=== PATIENT | male | born 1950 | race Caucasian/White ===

== ENCOUNTER 2018-12-10 23:09 | Inpatient (IN) | payer BC, MEDICARE ==
[~2018-12-10] VITALS: Ht 182.9 cm; Wt 99.3 kg
[2018-12-10 23:15] VITALS: BP 165/92
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
--- NOTE | 2018-12-10 23:50 | NUR ---
[facility] is here
[2018-12-11] VITALS (16 sets, daily range): BP systolic 135–181; BP diastolic 69–96
[2018-12-11 00:03] LABS: BASOPHILS % (AUTO) 0.7 % (0.0-2.0); EOSINOPHILS % (AUTO) 1.1 % (0.0-3.0); HEMATOCRIT 37.9 % (42.0-52.0); HEMOGLOBIN 13.3 G/DL (14.2-18.0); LYMPHOCYTES % (AUTO) 17.7 % (20.0-45.0); MEAN CORPUSCULAR VOLUME 85 FL (80-99); MONOCYTES % (AUTO) 4.7 % (1.0-10.0); NEUTROPHILS % (AUTO) 75.8 % (45.0-75.0); PLATELET COUNT 164 K/UL (150-450); RED BLOOD COUNT 4.46 M/UL (4.70-6.10); RED CELL DISTRIBUTION WIDTH 11.1 % (11.6-14.8); WHITE BLOOD COUNT 6.9 K/UL (4.8-10.8)
[2018-12-11 00:09] LABS: ANION GAP 12 mmol/L (5-15); BLOOD UREA NITROGEN 25 mg/dL (7-18); CALCIUM 9.1 MG/DL (8.5-10.1); CARBON DIOXIDE 23 MMOL/L (21-32); CHLORIDE 101 MMOL/L (98-107); CREATININE 0.8 MG/DL (0.55-1.30); POTASSIUM 3.4 MMOL/L (3.5-5.1); SODIUM 136 MMOL/L (136-145)
[2018-12-11 00:23] LABS: ALANINE AMINOTRANSFERASE 29 U/L (12-78); ALBUMIN 4.3 G/DL (3.4-5.0); ALBUMIN/GLOBULIN RATIO 1.3 (1.0-2.7); ALKALINE PHOSPHATASE 52 U/L (46-116); ASPARTATE AMINO TRANSFERASE 24 U/L (15-37); BILIRUBIN,TOTAL 0.4 MG/DL (0.2-1.0); CKMB 3.9 NG/ML (0.0-3.6); CREATINE KINASE 186 U/L (26-308)
--- NOTE | 2018-12-11 00:30 | Diagnostic Imaging Report ---
EXAM: CT Head Without Intravenous Contrast CLINICAL HISTORY: SYNCOPE TECHNIQUE: Axial computed tomography images of the head/brain without intravenous contrast. CTDI is 70.38 mGy and DLP is 1527 mGy-cm. One or more of the following dose reduction techniques were used: automated exposure control, adjustment of the mA and/or kV according to patient size, use of iterative reconstruction technique. COMPARISON: No relevant prior studies available. FINDINGS: Atrophy. Chronic-appearing ischemic changes and encephalomalacia in the frontal and temporal lobes. No intracranial hemorrhage, mass effect or other acute intracranial findings. Imaged paranasal sinuses well-aerated with minimal chronic-appearing sinus opacity. IMPRESSION: No acute intracranial findings
--- NOTE | 2018-12-11 00:51 | Diagnostic Imaging Report ---
EXAM: XR Chest, 1 View CLINICAL HISTORY: SYNCOPE TECHNIQUE: Frontal view of the chest. COMPARISON: No relevant prior studies available. FINDINGS/IMPRESSION: Rotated portable chest. Suspect cardiac silhouette upper limits normal size allowing for techniques. No overt edema, consolidation or other acute cardiopulmonary findings. Questionable increased right tracheal shift than normally expected. If there is concern for underlying mediastinal mass, CT could clarify.
--- NOTE | 2018-12-11 01:15 | NUR ---
ED Nurse Note: Pt had another syncopal episode while laying in bed, regained consciousness after 30 secs. Pt stated feeling dizzy before hand. ER MD aware, pt VSS. Pt resting now. No further orders at this time.
[2018-12-11 01:24] LABS: APPEARANCE,URINE CLEAR; BILIRUBIN, URINE NEGATIVE (NEGATIVE); COLOR,URINE PALE YELLOW; GLUCOSE, URINE (UA) 1+ (NEGATIVE); KETONES,URINE NEGATIVE (NEGATIVE); LEUKOCYTE ESTERASE ,URINE NEGATIVE (NEGATIVE); NITRITE,URINE NEGATIVE (NEGATIVE); PH,URINE 7 (4.5-8.0); PROTEIN,URINE NEGATIVE (NEGATIVE); UROBILINOGEN,URINE NORMAL MG/DL (0.0-1.0)
--- NOTE | 2018-12-11 03:41 | NUR ---
ED Nurse Note: Pt voided >900mls yellow urine, laying in bed now with eyes closed, snoring. Will continue to monitor. Awaiting Tele bed
--- NOTE | 2018-12-11 05:13 | NUR ---
ED Nurse Note: Called Dr Meza for admitting orders, no answer. Will attempt later.
--- NOTE | 2018-12-11 07:09 | NUR ---
HAND-OFF: Report given to TOLU Coleman.
[2018-12-11] MEDS ORDERED: INDERAL LA60 MG ORAL (07:10)
[2018-12-11] MEDS ORDERED: AMLODIPINE BESYL5 MG ORAL (07:10)
--- NOTE | 2018-12-11 07:10 | NUR ---
ED Nurse Note: recieved pt on bed, pt hooked on monitor with vs stable. pt came in due to syncopy, pt able to talk, alert oriented x 4. pt denies any pain. pt is having breakfast at the moment. will continue to monitor.
--- NOTE | 2018-12-11 08:09 | NUR ---
ED Nurse Note: pt is admitted to the hospital, report given to Nayla MOTLEY, rn told me that the bed is not ready yet, will call to chech after 10 mins.
--- NOTE | 2018-12-11 08:20 | NUR ---
ED Nurse Note: pt was transfered to tele 220-2 with stable vs and all belongings was endorsed to nurys Winslow
--- NOTE | 2018-12-11 08:30 | NUR ---
NURSE NOTES: Received report from TOLU Rios. Patient transferred from ED to tele, nurse monitoring on, Patient on room air, no active s/s cardiac respiratory distress noticed at this time. Patient AOx4, belonging list checked with RN. Patient denies pain at this time, IV on left hand 18G, asymptomatic, patent, intact. Bed in lowest position, side rails upx3, call light within reach. Will continue to monitor.
--- NOTE | 2018-12-11 12:00 | NUR ---
NURSE NOTES: Patient transferred to ICU-C per Dr. Meza.
[2018-12-11] MEDS ORDERED: HydrALAZINE 25mg tab ORAL PRN ×2 (12:15→13:07)
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
[2018-12-11] MEDS ORDERED: Aspirin Baby 81mg ORAL SCH (12:24)
--- NOTE | 2018-12-11 12:39 | NUR ---
CHARGE NURSE NOTES: at 1148 the quality assurance monitor chassis said the pt in 220 appears to be in asystole. Pt found unconscious/unresponsive/not breathing in left lateral position. Code was called and the patient moved to supine position. During a sternal rub the patient gasped and started to move. Code changed to EMERGENCY SERVICES PROFESSIONAL. Pt awake/disoriented O x name only. Dr Meza at bedside. EKG indicates a sinus pause lasting approx [address] Griffin contacted, orders received and read back. Pt transported to ICU - C.
--- NOTE | 2018-12-11 12:45 | NUR ---
NURSE NOTES: PATIENT BROUGHT TO ICU FROM TELE DUE TO ASYSTOLE. PATIENT IS AWAKE, ALERT AND ORIENTED. HOOKED TO CONTAINER WASHER MACHINE. ON ROOM AIR. NO SIGNS OF DISTRESS OF THE MOMENT. NO COUGHLIN. SKIN IS INTACT. IV ON LEFT HAND G18, SL. NO SIGNS OF DISTRESS. WILL CONTINUE TO MONITOR.
[2018-12-11 12:48] LABS: BASOPHILS % (AUTO) 0.7 % (0.0-2.0); EOSINOPHILS % (AUTO) 1.1 % (0.0-3.0); HEMATOCRIT 42.1 % (42.0-52.0); HEMOGLOBIN 14.4 G/DL (14.2-18.0); LYMPHOCYTES % (AUTO) 16.8 % (20.0-45.0); MEAN CORPUSCULAR VOLUME 86 FL (80-99); MONOCYTES % (AUTO) 7.2 % (1.0-10.0); NEUTROPHILS % (AUTO) 74.2 % (45.0-75.0); PLATELET COUNT 194 K/UL (150-450); RED BLOOD COUNT 4.92 M/UL (4.70-6.10); RED CELL DISTRIBUTION WIDTH 11.4 % (11.6-14.8); WHITE BLOOD COUNT 8.7 K/UL (4.8-10.8)
--- NOTE | 2018-12-11 13:00 | NUR ---
NURSE NOTES: PATIENT HOOKED TO NASAL CANNULA. WILL CONTINUE TO MONITOR.
[2018-12-11 13:14] LABS: ALANINE AMINOTRANSFERASE 31 U/L (12-78); ALBUMIN/GLOBULIN RATIO 1.1 (1.0-2.7); ALKALINE PHOSPHATASE 49 U/L (46-116); ANION GAP 12 mmol/L (5-15); ASPARTATE AMINO TRANSFERASE 20 U/L (15-37); BILIRUBIN,TOTAL 0.5 MG/DL (0.2-1.0); BLOOD UREA NITROGEN 16 mg/dL (7-18); CALCIUM 9.5 MG/DL (8.5-10.1); CARBON DIOXIDE 25 MMOL/L (21-32); CHLORIDE 105 MMOL/L (98-107); CHOLESTEROL 167 MG/DL (< 200); CREATINE KINASE 171 U/L (26-308); CREATININE 0.8 MG/DL (0.55-1.30); FERRITIN 104 NG/ML (8-388); GAMMA GLUTAMYL TRANSPEPTIDASE 23 U/L (5-85); HDL CHOLESTEROL 50 MG/DL (40-60); PHOSPHORUS 3.1 MG/DL (2.5-4.9); POTASSIUM 3.5 MMOL/L (3.5-5.1); SODIUM 142 MMOL/L (136-145); TRIGLYCERIDES 65 MG/DL (30-150)
[2018-12-11 13:36] LABS: % IRON SATURATION 30 % (15-50); IRON 95 ug/dL (50-175); TOTAL IRON BINDING CAPACITY 317 ug/dL (250-450)
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
--- NOTE | 2018-12-11 15:42 | Cardiac Electrophysiology PN ---
Subjective Subjective [id number] Objective Last 24 Hour Vital Signs Date Time Temp Pulse Resp B/P (MAP) Pulse Ox O2 Delivery O2 Flow Rate FiO2 12/11/18 13:15 181/96 12/11/18 09:58 76 174/99 12/11/18 09:00 Room Air 12/11/18 08:20 98.6 83 20 145/81 98 Room Air 12/11/18 07:12 83 20 145/81 98 Room Air 12/11/18 05:45 98.6 78 14 168/72 95 Room Air 12/11/18 05:22 Room Air 12/11/18 03:43 97.9 78 16 135/78 96 Room Air 12/11/18 01:30 97.8 58 20 148/80 95 Room Air 12/10/18 23:15 98.4 73 16 165/92 18 Room Air 12/10/18 23:06 98.1 73 16 170/92 (118) 96 Room Air Intake and Output 12/10/18 12/11/18 19:00 07:00 Output Total 1500 ml Balance -1500 ml Output Urine Total 1500 ml # Voids 3 Laboratory Tests Test 12/10/18 23:30 12/11/18 12:35 White Blood Count 6.9 K/UL (4.8-10.8) 8.7 K/UL (4.8-10.8) Red Blood Count 4.46 M/UL (4.70-6.10) L 4.92 M/UL (4.70-6.10) Hemoglobin 13.3 G/DL (14.2-18.0) L 14.4 G/DL (14.2-18.0) Hematocrit 37.9 % (42.0-52.0) L 42.1 % (42.0-52.0) Mean Corpuscular Volume 85 FL (80-99) 86 FL (80-99) Mean Corpuscular Hemoglobin 29.8 PG (27.0-31.0) 29.3 PG (27.0-31.0) Mean Corpuscular Hemoglobin Concent 35.1 G/DL (32.0-36.0) 34.2 G/DL (32.0-36.0) Red Cell Distribution Width 11.1 % (11.6-14.8) L 11.4 % (11.6-14.8) L Platelet Count 164 K/UL (150-450) 194 K/UL (150-450) Mean Platelet Volume 7.8 FL (6.5-10.1) 7.7 FL (6.5-10.1) Neutrophils (%) (Auto) 75.8 % (45.0-75.0) H 74.2 % (45.0-75.0) Lymphocytes (%) (Auto) 17.7 % (20.0-45.0) L 16.8 % (20.0-45.0) L Monocytes (%) (Auto) 4.7 % (1.0-10.0) 7.2 % (1.0-10.0) Eosinophils (%) (Auto) 1.1 % (0.0-3.0) 1.1 % (0.0-3.0) Basophils (%) (Auto) 0.7 % (0.0-2.0) 0.7 % (0.0-2.0) Sodium Level 136 MMOL/L (136-145) 142 MMOL/L (136-145) Potassium Level 3.4 MMOL/L (3.5-5.1) L 3.5 MMOL/L (3.5-5.1) Chloride Level 101 MMOL/L (98-107) 105 MMOL/L (98-107) Carbon Dioxide Level 23 MMOL/L (21-32) 25 MMOL/L (21-32) Anion Gap 12 mmol/L (5-15) 12 mmol/L (5-15) Blood Urea Nitrogen 25 mg/dL (7-18) H 16 mg/dL (7-18) Creatinine 0.8 MG/DL (0.55-1.30) 0.8 MG/DL (0.55-1.30) Estimat Glomerular Filtration Rate > 60 mL/min (>60) > 60 mL/min (>60) Glucose Level 235 MG/DL (74-106) H 159 MG/DL (74-106) H Calcium Level 9.1 MG/DL (8.5-10.1) 9.5 MG/DL (8.5-10.1) Total Bilirubin 0.4 MG/DL (0.2-1.0) 0.5 MG/DL (0.2-1.0) Aspartate Amino Transf (AST/SGOT) 24 U/L (15-37) 20 U/L (15-37) Alanine Aminotransferase (ALT/SGPT) 29 U/L (12-78) 31 U/L (12-78) Alkaline Phosphatase 52 U/L (46-116) 49 U/L (46-116) Total Creatine Kinase 186 U/L (26-308) 171 U/L (26-308) Creatine Kinase MB 3.9 NG/ML (0.0-3.6) H Creatine Kinase MB Relative Index 2.0 Troponin I 0.002 ng/mL (0.000-0.056) 0.008 ng/mL (0.000-0.056) Total Protein 7.5 G/DL (6.4-8.2) 7.5 G/DL (6.4-8.2) Albumin 4.3 G/DL (3.4-5.0) 4.0 G/DL (3.4-5.0) Globulin 3.2 g/dL 3.5 g/dL Albumin/Globulin Ratio 1.3 (1.0-2.7) 1.1 (1.0-2.7) Serum Alcohol < 3 mg/dL Hemoglobin A1c 5.7 % (4.3-6.0) Uric Acid 5.0 MG/DL (2.6-7.2) Phosphorus Level 3.1 MG/DL (2.5-4.9) Magnesium Level 2.1 MG/DL (1.8-2.4) Iron Level 95 ug/dL (50-175) Total Iron Binding Capacity 317 ug/dL (250-450) Percent Iron Saturation 30 % (15-50) Unsaturated Iron Binding 222 ug/dL (112-346) Ferritin 104 NG/ML (8-388) Gamma Glutamyl Transpeptidase 23 U/L (5-85) C-Reactive Protein, Quantitative < 0.4 mg/dL (0.00-0.90) Pro-B-Type Natriuretic Peptide 139 pg/mL (0-125) H Triglycerides Level 65 MG/DL (30-150) Cholesterol Level 167 MG/DL (< 200) LDL Cholesterol 105 mg/dL (<100) H HDL Cholesterol 50 MG/DL (40-60) Cholesterol/HDL Ratio 3.3 (3.3-4.4) Vitamin B12 Level 930 PG/ML (193-986) Folate 19.6 NG/ML (8.6-58.9) Thyroid Stimulating Hormone (TSH) 1.368 uiU/mL (0.358-3.740) Free Thyroxine 1.16 NG/DL (0.76-1.46) Samuel Griffin MD Dec 11, 2018 15:42
--- NOTE | 2018-12-11 15:42 | NUR ---
NURSE NOTES: SEEN AND EXAMINED BY DR FARRELL. WITH NEW ORDERS MADE. NO SIGN SOF DISTRESS. WILL CONTINUE TO MONITOR.
--- NOTE | 2018-12-11 19:10 | NUR ---
HAND-OFF: Report given to Charmaine Figueroa RN. Dr Elliott made aware that pt uses BIPAP at night. new orders made.
--- NOTE | 2018-12-11 19:54 | NUR ---
NURSE NOTES: pt awake and alert no c/o pain or sob hr 68-71 sr with 1st AVB
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
--- NOTE | 2018-12-11 20:31 | NUR ---
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
--- NOTE | 2018-12-11 22:00 | NUR ---
NURSE NOTES: pt awake and alert no c/o chest pain or sob
[2018-12-12] VITALS (35 sets, daily range): BP systolic 125–173; BP diastolic 62–100
--- NOTE | 2018-12-12 | NUR ---
NURSE NOTES: pt on b-pap 15/5 o2sat 100 o/o npo after sr 84
--- NOTE | 2018-12-12 00:54 | NUR ---
CODE BLUE: See Code sheet which remains on paper.
--- NOTE | 2018-12-12 01:25 | NUR ---
NURSE NOTES: Nurse Lorenza Called doctor Gaby at this time. Message left. awaiting for MD to call back.
--- NOTE | 2018-12-12 01:25 | NUR ---
NURSE NOTES: Called and spoke with Fabi Johnson about the patient coding. States she wants the sizing sprayer to be called and asked if the procedure can be done sooner or if a transfer could be arranged. If none of this can be done then she will come and take him somewhere they can place a pacemaker.
--- NOTE | 2018-12-12 01:36 | NUR ---
NURSE NOTES: Called spoke with nursing aircraft cleaning supervisor Aníbal about conversation with . Nurse Lorenza attempting to get a hold of doctor Gaby at this time.
--- NOTE | 2018-12-12 01:56 | NUR ---
NURSE NOTES: Called and left message for MD Griffin at this time. awaiting call back
--- NOTE | 2018-12-12 02:10 | NUR ---
NURSE NOTES: Nursing Technical Sales Consultant Aníbal in ICU, Called and left message for MD Griffin at this time. awaiting call back.
--- NOTE | 2018-12-12 02:15 | NUR ---
NURSE NOTES: Spoke to MD Griffin at this time. Order was given to let egg processing supervisor know to set up pacemaker Implantation for 0700 this morning. Computer Consultant, and patient Notified about the change in time.
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
--- NOTE | 2018-12-12 03:30 | NUR ---
NURSE NOTES: MD Griffin Called me at this time to notify the airfreight loading supervisor about coming to place pace maker at this time. Procedure can not wait until 0700.
--- NOTE | 2018-12-12 03:31 | NUR ---
NURSE NOTES: Nurse fence erector supervisor Aníbal at the Station now making calls and organizing the surgical team to come in
--- NOTE | 2018-12-12 03:41 | NUR ---
NURSE NOTES: MD Griffin Called and notified he has the rep from [employer] on his way and he will be here in 15 minutes
--- NOTE | 2018-12-12 04:10 | NUR ---
NURSE NOTES: MD Griffin at the bedside with the patient and family. awaiting surgical team.
[2018-12-12 04:14] LABS: BASOPHILS % (AUTO) 0.8 % (0.0-2.0); EOSINOPHILS % (AUTO) 1.6 % (0.0-3.0); HEMATOCRIT 41.8 % (42.0-52.0); HEMOGLOBIN 14.3 G/DL (14.2-18.0); LYMPHOCYTES % (AUTO) 17.8 % (20.0-45.0); MEAN CORPUSCULAR VOLUME 87 FL (80-99); MONOCYTES % (AUTO) 7.5 % (1.0-10.0); NEUTROPHILS % (AUTO) 72.3 % (45.0-75.0); PLATELET COUNT 206 K/UL (150-450); RED BLOOD COUNT 4.82 M/UL (4.70-6.10); RED CELL DISTRIBUTION WIDTH 11.4 % (11.6-14.8); WHITE BLOOD COUNT 9.3 K/UL (4.8-10.8)
--- NOTE | 2018-12-12 04:22 | Cardiac Electrophysiology PN ---
Assessment/Plan Assessment/Plan 1. 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 Heart rate down to 20s as well as more than 60 second asystole due to complete heart block. Even though the patient had a small dose of Inderal 2 days ago, that would not explain the complete heart block and more than 60 second pauses. This is a class 1 indication for permanent pacemaker implantation. Transcutaneous pacing patches were not capturing at max out put. Will proceed with emergency dual chamber pacer implant. Discussed with the patient and his the risks, benefits, and alternatives of permanent pacemaker implantation. They agreed and would like to proceed. 2. Accelerated hypertension. The patient is on hydralazine p.r.n. as well as standing dose of hydralazine 25 mg b.i.d. 3. The patient also was ruled out for myocardial infarction and thyroid function test within normal range. Echocardiogram showed ejection fraction of 50%. [facility] ICU team, nursing anode crew supervisor, [facility] Rep, Dr Meza and family at bedside Subjective Subjective Coded again at 00.54 with asystole with CHB and transcutaneous pacing patches wasn't capturing ventricle despite max out put, had CPR. Sinus angela came back at 00.55. Dr Molina from ER attended and he recieved atropine 0.5 mg for angela cardia. and son at bedside. I was called and Emergency OR team was activated. Patient now fully awake and alert with some Right Rib pain from CPR Objective Last 24 Hour Vital Signs Date Time Temp Pulse Resp B/P (MAP) Pulse Ox O2 Delivery O2 Flow Rate FiO2 12/12/18 04:00 98.4 62 14 128/78 (95) 98 12/12/18 04:00 98.4 12/12/18 03:00 62 14 128/78 (95) 98 12/12/18 02:00 69 14 140/81 (100) 98 12/12/18 01:00 72 12 142/80 (100) 98 12/12/18 00:35 17 98 Facial 35 12/12/18 00:35 67 17 98 Bi-Pap 35 12/12/18 00:00 98.4 72 19 142/77 (98) 99 12/11/18 23:00 72 19 142/77 (98) 99 12/11/18 22:00 76 18 156/80 (105) 98 12/11/18 21:00 81 16 146/69 (94) 98 12/11/18 20:00 98.6 69 12 172/91 (118) 100 12/11/18 20:00 83 12/11/18 20:00 Room Air 12/11/18 19:00 61 17 159/80 (106) 99 12/11/18 18:00 63 16 159/79 (105) 99 12/11/18 17:00 98.6 20 158/80 (106) 99 12/11/18 16:21 98.6 20 181/96 (124) 98 12/11/18 16:00 74 19 174/87 (116) 98 12/11/18 16:00 83 12/11/18 15:00 80 19 174/87 (116) 99 12/11/18 14:00 16 174/87 (116) 99 12/11/18 13:15 181/96 12/11/18 13:00 98.3 16 166/89 (114) 97 12/11/18 12:45 71 12/11/18 09:58 76 174/99 12/11/18 09:00 Room Air 12/11/18 08:20 98.6 83 20 145/81 98 Room Air 12/11/18 07:12 83 20 145/81 98 Room Air 12/11/18 05:45 98.6 78 14 168/72 95 Room Air 12/11/18 05:22 Room Air Intake and Output 12/11/18 12/12/18 18:59 06:59 Intake Total 450 ml 240 ml Output Total 2150 ml 300 ml Balance -1700 ml -60 ml Intake Oral 450 ml 240 ml Output Urine Total 2150 ml 300 ml # Voids 1 Laboratory Tests Test 12/11/18 12:35 12/12/18 03:45 White Blood Count 8.7 K/UL (4.8-10.8) Pending Red Blood Count 4.92 M/UL (4.70-6.10) Pending Hemoglobin 14.4 G/DL (14.2-18.0) Pending Hematocrit 42.1 % (42.0-52.0) Pending Mean Corpuscular Volume 86 FL (80-99) Pending Mean Corpuscular Hemoglobin 29.3 PG (27.0-31.0) Pending Mean Corpuscular Hemoglobin Concent 34.2 G/DL (32.0-36.0) Pending Red Cell Distribution Width 11.4 % (11.6-14.8) L Pending Platelet Count 194 K/UL (150-450) Pending Mean Platelet Volume 7.7 FL (6.5-10.1) Pending Neutrophils (%) (Auto) 74.2 % (45.0-75.0) Pending Lymphocytes (%) (Auto) 16.8 % (20.0-45.0) L Pending Monocytes (%) (Auto) 7.2 % (1.0-10.0) Pending Eosinophils (%) (Auto) 1.1 % (0.0-3.0) Pending Basophils (%) (Auto) 0.7 % (0.0-2.0) Pending Sodium Level 142 MMOL/L (136-145) Pending Potassium Level 3.5 MMOL/L (3.5-5.1) Pending Chloride Level 105 MMOL/L (98-107) Pending Carbon Dioxide Level 25 MMOL/L (21-32) Pending Anion Gap 12 mmol/L (5-15) Blood Urea Nitrogen 16 mg/dL (7-18) Pending Creatinine 0.8 MG/DL (0.55-1.30) Pending Estimat Glomerular Filtration Rate > 60 mL/min (>60) Pending Glucose Level 159 MG/DL (74-106) H Pending Hemoglobin A1c 5.7 % (4.3-6.0) Uric Acid 5.0 MG/DL (2.6-7.2) Calcium Level 9.5 MG/DL (8.5-10.1) Pending Phosphorus Level 3.1 MG/DL (2.5-4.9) Magnesium Level 2.1 MG/DL (1.8-2.4) Iron Level 95 ug/dL (50-175) Total Iron Binding Capacity 317 ug/dL (250-450) Percent Iron Saturation 30 % (15-50) Unsaturated Iron Binding 222 ug/dL (112-346) Ferritin 104 NG/ML (8-388) Total Bilirubin 0.5 MG/DL (0.2-1.0) Pending Gamma Glutamyl Transpeptidase 23 U/L (5-85) Aspartate Amino Transf (AST/SGOT) 20 U/L (15-37) Pending Alanine Aminotransferase (ALT/SGPT) 31 U/L (12-78) Pending Alkaline Phosphatase 49 U/L (46-116) Pending Total Creatine Kinase 171 U/L (26-308) Troponin I 0.008 ng/mL (0.000-0.056) C-Reactive Protein, Quantitative < 0.4 mg/dL (0.00-0.90) Pro-B-Type Natriuretic Peptide 139 pg/mL (0-125) H Total Protein 7.5 G/DL (6.4-8.2) Pending Albumin 4.0 G/DL (3.4-5.0) Pending Globulin 3.5 g/dL Pending Albumin/Globulin Ratio 1.1 (1.0-2.7) Triglycerides Level 65 MG/DL (30-150) Cholesterol Level 167 MG/DL (< 200) LDL Cholesterol 105 mg/dL (<100) H HDL Cholesterol 50 MG/DL (40-60) Cholesterol/HDL Ratio 3.3 (3.3-4.4) Vitamin B12 Level 930 PG/ML (193-986) Folate 19.6 NG/ML (8.6-58.9) Thyroid Stimulating Hormone (TSH) 1.368 uiU/mL (0.358-3.740) Free Thyroxine 1.16 NG/DL (0.76-1.46) Prothrombin Time Pending Prothromb Time International Ratio Pending Activated Partial Thromboplast Time Pending Objective HEAD AND NECK: Showed no JVD or carotid bruits. LUNGS: Clear. CARDIOVASCULAR: Angela S1 and S2 with no gallop or murmur. ABDOMEN: Soft and nontender. EXTREMITIES: No pitting edema. Samuel Griffin MD Dec 12, 2018 04:22
[2018-12-12 04:23] LABS: ANION GAP 8 mmol/L (5-15); BLOOD UREA NITROGEN 17 mg/dL (7-18); CALCIUM 9.1 MG/DL (8.5-10.1); CARBON DIOXIDE 26 MMOL/L (21-32); CHLORIDE 106 MMOL/L (98-107); CREATININE 0.9 MG/DL (0.55-1.30); SODIUM 140 MMOL/L (136-145)
--- NOTE | 2018-12-12 04:23 | Pre-Procedure Note/Attestation ---
Pre-Procedure Note/Attestation Complete Prior to Procedure Planned Procedure: left Procedure Narrative: Dual chamber pacer implant Attestation I attest that I discussed the nature of the procedure; its benefits; risks and complications; and alternatives (and the risks and benefits of such alternatives ), prior to the procedure, with the patient (or the patient's legal customer relations representative). I attest that, if there was a reasonable possibility of needing a blood transfusion, the patient (or the patient's legal customer relations representative) was given the [facility] standardized written summary, pursuant to the [employer] Manpreet Blood Safety Act ([place] Health and Safety Code # 1645, as amended). I attest that I re-evaluated the patient just prior to the surgery and that there has been no change in the patient's H&P, except as documented below: Samuel Griffin MD Dec 12, 2018 04:23
[2018-12-12 04:29] LABS: ALANINE AMINOTRANSFERASE 24 U/L (12-78); ALBUMIN/GLOBULIN RATIO 1.3 (1.0-2.7); ALKALINE PHOSPHATASE 54 U/L (46-116); ASPARTATE AMINO TRANSFERASE 18 U/L (15-37); BILIRUBIN,TOTAL 0.3 MG/DL (0.2-1.0)
--- NOTE | 2018-12-12 04:30 | NUR ---
NURSE NOTES: Patient taken down to surgery at this time. Report given to or nurse
[2018-12-12] MEDS ORDERED: Lidocaine 1% Plain 30 ml INJ ONE (04:35)
[2018-12-12] MEDS ORDERED: Isovue-M 300 15ml INJ ONE (04:35)
[2018-12-12] MEDS ORDERED: Midazolam 2mg/2ml Inj ONE (04:44)
[2018-12-12] MEDS ORDERED: fentaNYL 100 mcg/2 mL IV ONE (04:44)
[2018-12-12] MEDS ORDERED: Vancomycin 1gm vial IVPB ONE (04:51)
[2018-12-12] MEDS ORDERED: Sodium Chloride 10ml vial INJ ONE (05:00)
[2018-12-12] MEDS ORDERED: Propofol 200mg/20ml IV ONE (05:00)
[2018-12-12] MEDS ORDERED: Sterile Water Irrig 1000ml IRRIG ONE (05:00)
[2018-12-12] MEDS ORDERED: Atropine Sulfate 0.4mg/ml inj ONE (05:00)
[2018-12-12] MEDS ORDERED: Morphine Sulfate 2mg/ml Inj(IV/IM USE ONLY) IVP PRN ×2 (05:30→07:30)
[2018-12-12] MEDS ORDERED: Tylenol #3 tab (300mg/30mg) ORAL PRN ×2 (05:30→09:30)
--- NOTE | 2018-12-12 05:46 | Anethesia Preoperative Eval ---
Anesthesia Pre-op PMH/ROS General Date of Evaluation: Dec 12, 2018 Time of Evaluation: 04:40 Anesthesiologist: Serge ASA Score: ASA 3 Mallampati Score Class I : Soft palate, uvula, fauces, pillars visible Class II: Soft palate, uvula, fauces visible Class III: Soft palate, base of uvula visible Class IV: Only hard plate visible Mallampati Classification: Class II Surgeon: Pako Diagnosis: Complete Heart block Surgical Procedure: Pacemaker placement Anesthesia History: none Family History: no anesthesia problems Allergies: Coded Allergies: PENICILLINS (Verified Allergy, Unknown, 12/10/18) Patient NPO?: Yes NPO Date: Dec 12, 2018 NPO Time: 2100 Past Medical History Cardiovascular: Reports: HTN; Denies: CAD, GA, valve dz, arrhythmia, other Pulmonary: Reports: NISREEN Gastrointestinal/Genitourinary: Reports: GERD; Denies: CRI, ESRD, other Neurologic/Psychiatric: Denies: dementia, CVA, depression/anxiety, TIA, other Endocrine: 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 Exam Physician Exam Last Vital Signs Date Time Temp Pulse Resp B/P (MAP) Pulse Ox O2 Delivery O2 Flow Rate FiO2 12/12/18 04:00 83 12/12/18 04:00 98.4 14 128/78 (95) 98 12/12/18 00:35 Facial 35 Constitutional: NAD Neurologic: CN 2-12 intact Cardiovascular: RRR, other - angela Respiratory: CTA Gastrointestinal: S/NT/ND Airway Exam Mallampati Score: Class II MO: limited Neck: stiff ROM: limited Teeth: missing Dentures: no upper, no lower Anesthesia Pre-op A/P Labs Hematology Test 12/11/18 12:35 12/12/18 03:45 White Blood Count 8.7 K/UL (4.8-10.8) 9.3 K/UL (4.8-10.8) Red Blood Count 4.92 M/UL (4.70-6.10) 4.82 M/UL (4.70-6.10) Hemoglobin 14.4 G/DL (14.2-18.0) 14.3 G/DL (14.2-18.0) Hematocrit 42.1 % (42.0-52.0) 41.8 % (42.0-52.0) L Mean Corpuscular Volume 86 FL (80-99) 87 FL (80-99) Mean Corpuscular Hemoglobin 29.3 PG (27.0-31.0) 29.6 PG (27.0-31.0) Mean Corpuscular Hemoglobin Concent 34.2 G/DL (32.0-36.0) 34.2 G/DL (32.0-36.0) Red Cell Distribution Width 11.4 % (11.6-14.8) L 11.4 % (11.6-14.8) L Platelet Count 194 K/UL (150-450) 206 K/UL (150-450) Mean Platelet Volume 7.7 FL (6.5-10.1) 8.5 FL (6.5-10.1) Neutrophils (%) (Auto) 74.2 % (45.0-75.0) 72.3 % (45.0-75.0) Lymphocytes (%) (Auto) 16.8 % (20.0-45.0) L 17.8 % (20.0-45.0) L Monocytes (%) (Auto) 7.2 % (1.0-10.0) 7.5 % (1.0-10.0) Eosinophils (%) (Auto) 1.1 % (0.0-3.0) 1.6 % (0.0-3.0) Basophils (%) (Auto) 0.7 % (0.0-2.0) 0.8 % (0.0-2.0) Coagulation Test 12/12/18 03:45 Prothrombin Time 10.3 SEC (9.30-11.50) Prothromb Time International Ratio 1.0 (0.9-1.1) Activated Partial Thromboplast Time 27 SEC (23-33) Chemistry Test 12/11/18 12:35 6/17/19 03:45 Sodium Level 142 MMOL/L (136-145) 140 MMOL/L (136-145) Potassium Level 3.5 MMOL/L (3.5-5.1) 4.0 MMOL/L (3.5-5.1) Chloride Level 105 MMOL/L (98-107) 106 MMOL/L (98-107) Carbon Dioxide Level 25 MMOL/L (21-32) 26 MMOL/L (21-32) Anion Gap 12 mmol/L (5-15) 8 mmol/L (5-15) Blood Urea Nitrogen 16 mg/dL (7-18) 17 mg/dL (7-18) Creatinine 0.8 MG/DL (0.55-1.30) 0.9 MG/DL (0.55-1.30) Estimat Glomerular Filtration Rate > 60 mL/min (>60) > 60 mL/min (>60) Glucose Level 159 MG/DL (74-106) H 135 MG/DL (74-106) H Hemoglobin A1c 5.7 % (4.3-6.0) Uric Acid 5.0 MG/DL (2.6-7.2) Calcium Level 9.5 MG/DL (8.5-10.1) 9.1 MG/DL (8.5-10.1) Phosphorus Level 3.1 MG/DL (2.5-4.9) Magnesium Level 2.1 MG/DL (1.8-2.4) Iron Level 95 ug/dL (50-175) Total Iron Binding Capacity 317 ug/dL (250-450) Percent Iron Saturation 30 % (15-50) Unsaturated Iron Binding 222 ug/dL (112-346) Ferritin 104 NG/ML (8-388) Total Bilirubin 0.5 MG/DL (0.2-1.0) 0.3 MG/DL (0.2-1.0) Gamma Glutamyl Transpeptidase 23 U/L (5-85) Aspartate Amino Transf (AST/SGOT) 20 U/L (15-37) 18 U/L (15-37) Alanine Aminotransferase (ALT/SGPT) 31 U/L (12-78) 24 U/L (12-78) Alkaline Phosphatase 49 U/L (46-116) 54 U/L (46-116) Total Creatine Kinase 171 U/L (26-308) Troponin I 0.008 ng/mL (0.000-0.056) C-Reactive Protein, Quantitative < 0.4 mg/dL (0.00-0.90) Pro-B-Type Natriuretic Peptide 139 pg/mL (0-125) H Total Protein 7.5 G/DL (6.4-8.2) 7.1 G/DL (6.4-8.2) Albumin 4.0 G/DL (3.4-5.0) 4.0 G/DL (3.4-5.0) Globulin 3.5 g/dL 3.1 g/dL Albumin/Globulin Ratio 1.1 (1.0-2.7) 1.3 (1.0-2.7) Triglycerides Level 65 MG/DL (30-150) Cholesterol Level 167 MG/DL (< 200) LDL Cholesterol 105 mg/dL (<100) H HDL Cholesterol 50 MG/DL (40-60) Cholesterol/HDL Ratio 3.3 (3.3-4.4) Vitamin B12 Level 930 PG/ML (193-986) Folate 19.6 NG/ML (8.6-58.9) Thyroid Stimulating Hormone (TSH) 1.368 uiU/mL (0.358-3.740) Free Thyroxine 1.16 NG/DL (0.76-1.46) Risk Assessment & Plan Assessment: ASA 3 Plan: MAC Status Change Before Surgery: No Pre-Antibiotics Drug: Vancomycin 1gr Given Within 1 Hr of Incision: Yes Time Given: 05:50 Jorge Valentine MD Dec 12, 2018 05:46
[2018-12-12] MEDS ORDERED: NS Irrig 1000ml IRRIG ONE (05:48)
[2018-12-12] MEDS ORDERED: Vancomycin 1.25gm Premix q24h IVPB SCH ×2 (06:00→09:00)
[2018-12-12] MEDS ORDERED: Ketorolac 30mg Inj IV PRN (06:00)
--- NOTE | 2018-12-12 06:08 | Brief Operative Note ---
Immediate Post Operative Note Operative Note Pre-op Diagnosis: CHB syncope Procedure: Dual chamber [facility] pacer placement Post-op Diagnosis: same as pre-op Surgeon: Samuel Griffin MD Specimen: none Complications: none Fluids: none Estimated Blood Loss: minimal Implant(s) used?: Yes Samuel Griffin MD Dec 12, 2018 06:08
--- NOTE | 2018-12-12 06:34 | Immediate Post-Op Evaluation ---
Immediate Post-Op Evalulation Immediate Post-Op Evalulation Procedure: Permanent pacemaker placement Date of Evaluation: Dec 12, 2018 Time of Evaluation: 06:33 IV Fluids: 300 Blood Products: none Estimated Blood Loss: <50 Urinary Output: none Blood Pressure Systolic: 132 Blood Pressure Diastolic: 56 Pulse Rate: 60 Respiratory Rate: 18 O2 Sat by Pulse Oximetry: 99 Temperature (Fahrenheit): 97.6 Pain Score (1-10): 1 Nausea: No Vomiting: No Complications none Patient Status: awake, patent, none Hydration Status: adequate Jorge Valentine MD Dec 12, 2018 06:34
--- NOTE | 2018-12-12 06:40 | NUR ---
NURSE NOTES: Received patient from OR S/p Pacemaker implantation. Sinus rhythm on the monitor with HR 60. On 2 L NC Sat 99-100%. Left arm in a sling and Ice pack to be applied. Patient to be recovered in ICU. No signs of distress.
--- NOTE | 2018-12-12 07:35 | NUR ---
HAND-OFF: Report given to ying nuno.
--- NOTE | 2018-12-12 08:15 | NUR ---
NURSE NOTES: Patient report given by TOLU Montiel. Patient is awake and alert to name, time, place and situation, he is able to reposnd verbal to questions with no slur or delay, he is able to answer questions accurately and concise, patient denies and pain over the left upper chest region where the pacer was implemented, the wound edges are well approximated with no redness or swelling noted, no tenderness or oozing noted, he currently has a ice pack over the surgical site, the monitor shows a sinus rhythm and a-paced rhythm if heart rate reaches 60-65bpm, patient is able to reposition self with no assistance and had 5/5 dexterity bilaterally of upper and lower extremities, he is currently on a nasal cannula at 2l/min with saturations of 95-98% with lungs clear on upper and lower lobes, SCD's are placed on patient at this time.
--- NOTE | 2018-12-12 08:57 | NUR ---
RADIOLOGY DEPT., CHEST X-RAY DONE.-P.DYE
[2018-12-12] MEDS ORDERED: Aspirin Baby 81mg ORAL SCH ×2 (09:00)
[2018-12-12] MEDS ORDERED: Vancomycin 1.25gm Premix 275 ML IVPB SCH (09:00)
[2018-12-12] MEDS ORDERED: Vancomycin 1 GM in D5W 275 ML IVPB SCH (09:00)
--- NOTE | 2018-12-12 10:23 | NUR ---
NURSE NOTES: At 0900, patient refused to take aspirin 81mg this morning, Dr. Griffin called to inform of medication refused. Dr. Griffin informed patient refused to take aspirin stating "he does not want take it because it might cause his to bleed" Dr. Griffin ordered to have medication Discontinued.
--- NOTE | 2018-12-12 11:24 | Nephrology Progress Note ---
Assessment/Plan Problem List: (1) Syncope (2) Bradycardia (3) Hypertension (4) Obese Assessment: likely NISREEN Assessment Syncope Obesity HTN DM microscopic hematuria Plan Had emergency pacemaker early this morning K supplement as needed check labs Hydralazine PRN for BP Subjective ROS Limited/Unobtainable: No Constitutional: Reports: malaise Objective Objective Last 24 Hour Vital Signs Date Time Temp Pulse Resp B/P (MAP) Pulse Ox O2 Delivery O2 Flow Rate FiO2 12/12/18 10:00 60 15 130/82 (98) 93 12/12/18 09:30 83 21 125/66 (85) 97 12/12/18 09:00 97 20 158/89 (112) 97 12/12/18 08:30 79 17 153/96 (115) 98 12/12/18 08:00 60 12/12/18 08:00 97.9 62 18 138/81 (100) 95 12/12/18 08:00 Nasal Cannula 2.0 12/12/18 07:30 60 15 142/81 (101) 98 12/12/18 07:25 61 13 148/85 (106) 98 12/12/18 07:15 70 19 173/80 (111) 97 12/12/18 07:10 60 18 148/77 (100) 95 12/12/18 07:10 60 18 148/77 (100) 95 12/12/18 07:05 60 19 146/85 (105) 95 12/12/18 07:05 60 19 146/85 (105) 95 12/12/18 07:00 60 17 153/84 (107) 95 12/12/18 07:00 60 17 153/84 (107) 95 12/12/18 06:55 66 20 99 12/12/18 06:55 66 20 154/81 (105) 99 12/12/18 06:50 60 16 138/79 (98) 99 12/12/18 06:45 60 15 153/89 (110) 98 12/12/18 06:40 61 17 147/89 (108) 98 12/12/18 06:35 62 13 155/83 (107) 96 12/12/18 06:34 60 18 99 12/12/18 06:30 60 13 144/78 (100) 98 12/12/18 04:00 83 12/12/18 04:00 98.4 62 14 128/78 (95) 98 12/12/18 04:00 98.4 12/12/18 03:00 62 14 128/78 (95) 98 12/12/18 02:00 69 14 140/81 (100) 98 12/12/18 01:00 72 12 142/80 (100) 98 12/12/18 00:35 67 17 98 Facial 35 12/12/18 00:35 67 17 98 Bi-Pap 35 12/12/18 00:00 98.4 72 19 142/77 (98) 99 12/12/18 00:00 84 12/11/18 23:00 72 19 142/77 (98) 99 12/11/18 22:00 76 18 156/80 (105) 98 12/11/18 21:00 81 16 146/69 (94) 98 12/11/18 20:00 98.6 69 12 172/91 (118) 100 12/11/18 20:00 83 12/11/18 20:00 Room Air 12/11/18 19:00 61 17 159/80 (106) 99 12/11/18 18:00 63 16 159/79 (105) 99 12/11/18 17:00 98.6 20 158/80 (106) 99 12/11/18 16:21 98.6 20 181/96 (124) 98 12/11/18 16:00 74 19 174/87 (116) 98 12/11/18 16:00 83 12/11/18 15:00 80 19 174/87 (116) 99 12/11/18 14:00 16 174/87 (116) 99 12/11/18 13:15 181/96 12/11/18 13:00 98.3 16 166/89 (114) 97 12/11/18 12:45 71 Intake and Output 12/11/18 12/12/18 19:00 07:00 Intake Total 450 ml 240 ml Output Total 2150 ml 300 ml Balance -1700 ml -60 ml Intake Oral 450 ml 240 ml Output Urine Total 2150 ml 300 ml # Voids 1 Laboratory Tests 12/11/18 12:35: White Blood Count 8.7, Red Blood Count 4.92, Hemoglobin 14.4, Hematocrit 42.1, Mean Corpuscular Volume 86, Mean Corpuscular Hemoglobin 29.3, Mean Corpuscular Hemoglobin Concent 34.2, Red Cell Distribution Width 11.4L, Platelet Count 194, Mean Platelet Volume 7.7, Neutrophils (%) (Auto) 74.2, Lymphocytes (%) (Auto) 16.8L, Monocytes (%) (Auto) 7.2, Eosinophils (%) (Auto) 1.1, Basophils (%) (Auto ) 0.7, Sodium Level 142, Potassium Level 3.5, Chloride Level 105, Carbon Dioxide Level 25, Anion Gap 12, Blood Urea Nitrogen 16, Creatinine 0.8, Estimat Glomerular Filtration Rate > 60, Glucose Level 159H, Hemoglobin A1c 5.7, Uric Acid 5.0, Calcium Level 9.5, Phosphorus Level 3.1, Magnesium Level 2.1, Iron Level 95, Total Iron Binding Capacity 317, Percent Iron Saturation 30, Unsaturated Iron Binding 222, Ferritin 104, Total Bilirubin 0.5, Gamma Glutamyl Transpeptidase 23, Aspartate Amino Transf (AST/SGOT) 20, Alanine Aminotransferase (ALT/SGPT) 31, Alkaline Phosphatase 49, Total Creatine Kinase 171, Troponin I 0.008, C-Reactive Protein, Quantitative < 0.4, Pro-B-Type Natriuretic Peptide 139H, Total Protein 7.5, Albumin 4.0, Globulin 3.5, Albumin/ Globulin Ratio 1.1, Triglycerides Level 65, Cholesterol Level 167, LDL Cholesterol 105H, HDL Cholesterol 50, Cholesterol/HDL Ratio 3.3, Vitamin B12 Level 930, Folate 19.6, Thyroid Stimulating Hormone (TSH) 1.368, Free Thyroxine 1.16 12/12/18 03:45: White Blood Count 9.3, Red Blood Count 4.82, Hemoglobin 14.3, Hematocrit 41.8L, Mean Corpuscular Volume 87, Mean Corpuscular Hemoglobin 29.6, Mean Corpuscular Hemoglobin Concent 34.2, Red Cell Distribution Width 11.4L, Platelet Count 206, Mean Platelet Volume 8.5, Neutrophils (%) (Auto) 72.3, Lymphocytes (%) (Auto) 17.8L, Monocytes (%) (Auto) 7.5, Eosinophils (%) (Auto) 1.6, Basophils (%) (Auto ) 0.8, Sodium Level 140, Potassium Level 4.0, Chloride Level 106, Carbon Dioxide Level 26, Anion Gap 8, Blood Urea Nitrogen 17, Creatinine 0.9, Estimat Glomerular Filtration Rate > 60, Glucose Level 135H, Calcium Level 9.1, Total Bilirubin 0.3, Aspartate Amino Transf (AST/SGOT) 18, Alanine Aminotransferase ( ALT/SGPT) 24, Alkaline Phosphatase 54, Total Protein 7.1, Albumin 4.0, Globulin 3.1, Albumin/Globulin Ratio 1.3, Prothrombin Time 10.3, Prothromb Time International Ratio 1.0, Activated Partial Thromboplast Time 27 Height (Feet): 6 Height (Inches): 0.00 Weight (Pounds): 219 General Appearance: no apparent distress Cardiovascular: pacemaker/AICD Respiratory/Chest: decreased breath sounds Abdomen: soft, other - obese Jermain Gutierrez MD Dec 12, 2018 11:24
--- NOTE | 2018-12-12 12:30 | NUR ---
NURSE NOTES: Dr. Meza at the bedside with patient, updated on patient progress after pacemaker placement, pacer remains sensing and capturing once HR is at 60, a spike is noted and a atrial wave is noted forllowed with a QRS wave of 0.12. no verbal orders given at this time.
--- NOTE | 2018-12-12 13:45 | Critical Care Progress Note ---
Assessment/Plan Assessment/Plan bradycardia hypertension s/p pacemaker respiratory insufficiency sleep apnea PLAN BIPAP as tolerated continue same cardiology follow up monitor for change medications/laboratory data/nursing notes/ICU care reviewed in detail note reviewed and edited care discussed with RN and RT ICU time spent 35 minutes Critical Care - Subjective Interval Events: care noted and reviewed overall stable overnight BIPAP overnight- difficult to tolerate currently in no distress on oxygen Condition: improving EKG Rhythm: Sinus Rhythm I&O: Intake and Output 12/11/18 12/12/18 19:00 07:00 Intake Total 450 ml 240 ml Output Total 2150 ml 300 ml Balance -1700 ml -60 ml Intake Oral 450 ml 240 ml Output Urine Total 2150 ml 300 ml # Voids 1 Critical Care - Objective Last 24 Hour Vital Signs Date Time Temp Pulse Resp B/P (MAP) Pulse Ox O2 Delivery O2 Flow Rate FiO2 12/12/18 12:00 Nasal Cannula 2.0 12/12/18 12:00 97.7 63 20 160/89 (112) 99 12/12/18 12:00 60 12/12/18 11:00 62 15 141/67 (91) 98 12/12/18 10:00 60 15 130/82 (98) 93 12/12/18 09:30 83 21 125/66 (85) 97 12/12/18 09:00 97 20 158/89 (112) 97 12/12/18 08:30 79 17 153/96 (115) 98 12/12/18 08:00 60 12/12/18 08:00 97.9 62 18 138/81 (100) 95 12/12/18 08:00 Nasal Cannula 2.0 12/12/18 07:30 60 15 142/81 (101) 98 12/12/18 07:25 61 13 148/85 (106) 98 12/12/18 07:15 70 19 173/80 (111) 97 12/12/18 07:10 60 18 148/77 (100) 95 12/12/18 07:10 60 18 148/77 (100) 95 12/12/18 07:05 60 19 146/85 (105) 95 12/12/18 07:05 60 19 146/85 (105) 95 12/12/18 07:00 60 17 153/84 (107) 95 12/12/18 07:00 60 17 153/84 (107) 95 12/12/18 06:55 66 20 99 12/12/18 06:55 66 20 154/81 (105) 99 12/12/18 06:50 60 16 138/79 (98) 99 12/12/18 06:45 60 15 153/89 (110) 98 12/12/18 06:40 61 17 147/89 (108) 98 12/12/18 06:35 62 13 155/83 (107) 96 12/12/18 06:34 60 18 99 12/12/18 06:30 60 13 144/78 (100) 98 12/12/18 04:00 83 12/12/18 04:00 98.4 62 14 128/78 (95) 98 12/12/18 04:00 98.4 12/12/18 03:00 62 14 128/78 (95) 98 12/12/18 02:00 69 14 140/81 (100) 98 12/12/18 01:00 72 12 142/80 (100) 98 12/12/18 00:35 67 17 98 Facial 35 12/12/18 00:35 67 17 98 Bi-Pap 35 12/12/18 00:00 98.4 72 19 142/77 (98) 99 12/12/18 00:00 84 12/11/18 23:00 72 19 142/77 (98) 99 12/11/18 22:00 76 18 156/80 (105) 98 12/11/18 21:00 81 16 146/69 (94) 98 12/11/18 20:00 98.6 69 12 172/91 (118) 100 12/11/18 20:00 83 12/11/18 20:00 Room Air 12/11/18 19:00 61 17 159/80 (106) 99 12/11/18 18:00 63 16 159/79 (105) 99 12/11/18 17:00 98.6 20 158/80 (106) 99 12/11/18 16:21 98.6 20 181/96 (124) 98 12/11/18 16:00 74 19 174/87 (116) 98 12/11/18 16:00 83 12/11/18 15:00 80 19 174/87 (116) 99 12/11/18 14:00 16 174/87 (116) 99 Labs: Labs Test 12/10/18 01:05 12/10/18 23:30 12/11/18 12:35 12/12/18 03:45 Urine Color Pale yellow Urine Appearance Clear Urine pH 7 (4.5-8.0) Urine Specific [place] 1.010 (1.005-1.035) Urine Protein Negative (NEGATIVE) Urine Glucose (UA) 1+ (NEGATIVE) Urine Ketones Negative (NEGATIVE) Urine Blood 4+ (NEGATIVE) Urine Nitrite Negative (NEGATIVE) Urine Bilirubin Negative (NEGATIVE) Urine Urobilinogen Normal MG/DL (0.0-1.0) Urine Leukocyte Esterase Negative (NEGATIVE) Urine RBC 20-30 /HPF (0 - 0) Urine WBC 0-2 /HPF (0 - 0) Urine Squamous Epithelial Cells Occasional /LPF Urine Bacteria Occasional /HPF (NONE) Urine Mucus Few /LPF (NONE/OCC) Urine Opiates Screen Negative (NEGATIVE) Urine Barbiturates Screen Negative (NEGATIVE) Phencyclidine (PCP) Screen Negative (NEGATIVE) Urine Amphetamines Screen Negative (NEGATIVE) Urine Benzodiazepines Screen Negative (NEGATIVE) Urine Cocaine Screen Negative (NEGATIVE) Urine Marijuana (THC) Screen Negative (NEGATIVE) White Blood Count 6.9 K/UL (4.8-10.8) 8.7 K/UL (4.8-10.8) 9.3 K/UL (4.8-10.8) Red Blood Count 4.46 M/UL (4.70-6.10) 4.92 M/UL (4.70-6.10) 4.82 M/UL (4.70-6.10) Hemoglobin 13.3 G/DL (14.2-18.0) 14.4 G/DL (14.2-18.0) 14.3 G/DL (14.2-18.0) Hematocrit 37.9 % (42.0-52.0) 42.1 % (42.0-52.0) 41.8 % (42.0-52.0) Mean Corpuscular Volume 85 FL (80-99) 86 FL (80-99) 87 FL (80-99) Mean Corpuscular Hemoglobin 29.8 PG (27.0-31.0) 29.3 PG (27.0-31.0) 29.6 PG (27.0-31.0) Mean Corpuscular Hemoglobin Concent 35.1 G/DL (32.0-36.0) 34.2 G/DL (32.0-36.0) 34.2 G/DL (32.0-36.0) Red Cell Distribution Width 11.1 % (11.6-14.8) 11.4 % (11.6-14.8) 11.4 % (11.6-14.8) Platelet Count 164 K/UL (150-450) 194 K/UL (150-450) 206 K/UL (150-450) Mean Platelet Volume 7.8 FL (6.5-10.1) 7.7 FL (6.5-10.1) 8.5 FL (6.5-10.1) Neutrophils (%) (Auto) 75.8 % (45.0-75.0) 74.2 % (45.0-75.0) 72.3 % (45.0-75.0) Lymphocytes (%) (Auto) 17.7 % (20.0-45.0) 16.8 % (20.0-45.0) 17.8 % (20.0-45.0) Monocytes (%) (Auto) 4.7 % (1.0-10.0) 7.2 % (1.0-10.0) 7.5 % (1.0-10.0) Eosinophils (%) (Auto) 1.1 % (0.0-3.0) 1.1 % (0.0-3.0) 1.6 % (0.0-3.0) Basophils (%) (Auto) 0.7 % (0.0-2.0) 0.7 % (0.0-2.0) 0.8 % (0.0-2.0) Sodium Level 136 MMOL/L (136-145) 142 MMOL/L (136-145) 140 MMOL/L (136-145) Potassium Level 3.4 MMOL/L (3.5-5.1) 3.5 MMOL/L (3.5-5.1) 4.0 MMOL/L (3.5-5.1) Chloride Level 101 MMOL/L (98-107) 105 MMOL/L (98-107) 106 MMOL/L (98-107) Carbon Dioxide Level 23 MMOL/L (21-32) 25 MMOL/L (21-32) 26 MMOL/L (21-32) Anion Gap 12 mmol/L (5-15) 12 mmol/L (5-15) 8 mmol/L (5-15) Blood Urea Nitrogen 25 mg/dL (7-18) 16 mg/dL (7-18) 17 mg/dL (7-18) Creatinine 0.8 MG/DL (0.55-1.30) 0.8 MG/DL (0.55-1.30) 0.9 MG/DL (0.55-1.30) Estimat Glomerular Filtration Rate > 60 mL/min (>60) > 60 mL/min (>60) > 60 mL/min (>60) Glucose Level 235 MG/DL (74-106) 159 MG/DL (74-106) 135 MG/DL (74-106) Calcium Level 9.1 MG/DL (8.5-10.1) 9.5 MG/DL (8.5-10.1) 9.1 MG/DL (8.5-10.1) Total Bilirubin 0.4 MG/DL (0.2-1.0) 0.5 MG/DL (0.2-1.0) 0.3 MG/DL (0.2-1.0) Aspartate Amino Transf (AST/SGOT) 24 U/L (15-37) 20 U/L (15-37) 18 U/L (15-37) Alanine Aminotransferase (ALT/SGPT) 29 U/L (12-78) 31 U/L (12-78) 24 U/L (12-78) Alkaline Phosphatase 52 U/L (46-116) 49 U/L (46-116) 54 U/L (46-116) Total Creatine Kinase 186 U/L (26-308) 171 U/L (26-308) Creatine Kinase MB 3.9 NG/ML (0.0-3.6) Creatine Kinase MB Relative Index 2.0 Troponin I 0.002 ng/mL (0.000-0.056) 0.008 ng/mL (0.000-0.056) Total Protein 7.5 G/DL (6.4-8.2) 7.5 G/DL (6.4-8.2) 7.1 G/DL (6.4-8.2) Albumin 4.3 G/DL (3.4-5.0) 4.0 G/DL (3.4-5.0) 4.0 G/DL (3.4-5.0) Globulin 3.2 g/dL 3.5 g/dL 3.1 g/dL Albumin/Globulin Ratio 1.3 (1.0-2.7) 1.1 (1.0-2.7) 1.3 (1.0-2.7) Serum Alcohol < 3 mg/dL Hemoglobin A1c 5.7 % (4.3-6.0) Uric Acid 5.0 MG/DL (2.6-7.2) Phosphorus Level 3.1 MG/DL (2.5-4.9) Magnesium Level 2.1 MG/DL (1.8-2.4) Iron Level 95 ug/dL (50-175) Total Iron Binding Capacity 317 ug/dL (250-450) Percent Iron Saturation 30 % (15-50) Unsaturated Iron Binding 222 ug/dL (112-346) Ferritin 104 NG/ML (8-388) Gamma Glutamyl Transpeptidase 23 U/L (5-85) C-Reactive Protein, Quantitative < 0.4 mg/dL (0.00-0.90) Pro-B-Type Natriuretic Peptide 139 pg/mL (0-125) Triglycerides Level 65 MG/DL (30-150) Cholesterol Level 167 MG/DL (< 200) LDL Cholesterol 105 mg/dL (<100) HDL Cholesterol 50 MG/DL (40-60) Cholesterol/HDL Ratio 3.3 (3.3-4.4) Vitamin B12 Level 930 PG/ML (193-986) Folate 19.6 NG/ML (8.6-58.9) Thyroid Stimulating Hormone (TSH) 1.368 uiU/mL (0.358-3.740) Free Thyroxine 1.16 NG/DL (0.76-1.46) Prothrombin Time 10.3 SEC (9.30-11.50) Prothromb Time International Ratio 1.0 (0.9-1.1) Activated Partial Thromboplast Time 27 SEC (23-33) Objective: WDWN NAD clear breath sounds bilaterally without rhonchi or wheeze [id number] without MRG NABS nontender no HSM no CCE nonfocal reviewed and edited Laureano Elliott MD Dec 12, 2018 13:45
--- NOTE | 2018-12-12 14:35 | NUR ---
NURSE NOTES: currently patient is resting on right lateral side with no pain noted with a 0/10 while resting but is aggravated when repositioning self, remains on nasal cannula at 2L/min with saturations at 98% and HR at 60 with A-paced rhythm, paced remains capturing, sensing correctly, his BP is 142/75 taken on the Left arm, denies any symptoms of nausea after administration of Zofran 4MG IVP, basin placed at the bedside.
--- NOTE | 2018-12-12 16:27 | Diagnostic Imaging Report ---
Indication: Cough Technique: One view of the chest Comparison: 12/11/2018 Findings: There is a left chest bifocal pacemaker. Lungs and pleural spaces are clear. Heart size is normal. The aorta is tortuous. Impression: No acute process
--- NOTE | 2018-12-12 16:30 | NUR ---
NURSE NOTES: Dr. Griffin updated on pacer status, pacer remains capturing and sensing correctly with no symptoms of bradycardia, patient is to remains in ICU for monitoring.
[2018-12-12] MEDS: Vancomycin 1.25gm Premix 275 ML IVPB SCH (18:11)
--- NOTE | 2018-12-12 18:54 | Diagnostic Imaging Report ---
Indication: Right chest pain, status post multiple chest compression Technique: One view of the chest Comparison: 10 hours earlier Findings: Left chest pacemaker is again demonstrated. Heart size is normal. The aorta is tortuous. Lungs pleural spaces are clear. No pneumothorax. Bones appear grossly intact. Impression: No definite acute process.
--- NOTE | 2018-12-12 19:00 | Operative Note - Dictated ---
DATE OF OPERATION: 12/12/2018 NOTE: POOR AUDIO PERMANENT PACEMAKER IMPLANTATION SURGEON: Samuel Griffin M.D. INDICATION FOR THE PROCEDURE: Recurrent syncope intermittent complete heart block and not due to correctable cause. The patient had multiple pauses of more than 60 seconds requiring CPR as well as atropine injection. PROCEDURE PERFORMED: 1. Dual-chamber permanent pacemaker implantation. 2. Fluoroscopic supervision and interpretation. OPERATIVE REPORT: The patient was brought to the operating room in fasting state and after informed consent was obtained. The patient was prepped and draped in usual fashion. Conscious sedation was obtained by the anesthesiologist. After prep and drape under sterile condition after the patient received a gram of vancomycin within an hour of incision, a total of 20 mL of lidocaine was given to left groove. Sharp and blunt dissection was made to the level of pectoralis fascia. The cephalic vein was isolated and the cephalic vein cutdown was performed. The right atrial and right ventricular lead was placed through this access and was placed in right atrial appendage and right ventricular apex with excellent sensing and pacing parameters. Both were affixed on the right pectoralis fascia. A pocket was made close to the venous access that was irrigated with antibiotic solution. Both leads were then connected to the pacemaker and left in the pocket. The pocket was then closed in three layers using 2-0 Vicryl and Dermabond. The patient suffered no immediate complications from the procedure and was transferred to recovery room in stable condition. FINDINGS: The pacemaker is from [employer], model number [id number], serial number [id number]. The right atrial lead is from [employer], model number , serial number . The right ventricular lead is from [employer]. It is [id number] 58 centimeter, serial number is [id number]. The P-wave amplitude was 2.1 millivolts, threshold was 1.7 volts at 0.4 millisecond, 490 ohms. R-wave was 5.1 millivolts, threshold was 0.5 volts at 0.4 millisecond, impedance of 690 ohms. IMPRESSION: 1. Successful dual-chamber permanent pacemaker implantation. 2. Pacemaker was programmed lower rate of 60 up to 120. 3. No immediate complications from the procedure. Samuel Griffin M.D. DR: HYUN JOB#: [id number] CC:
--- NOTE | 2018-12-12 19:08 | NUR ---
HAND-OFF: Report given to TOLU Montiel. Ct scan of the chest endorsed to hotel night auditor nurse, patient is aware of ct scan pending.
--- NOTE | 2018-12-12 19:38 | 48 Hour Post Anesthesia Eval ---
Post Anesthesia Evaluation Procedure: Permanent pacemaker placement Date of Evaluation: Dec 12, 2018 Time of Evaluation: 19:38 Blood Pressure Systolic: 158 0: 100 Pulse Rate: 70 O2 Sat by Pulse Oximetry: 98 Airway: patent Nausea: No Vomiting: No Hydration Status: adequate Cardiopulmonary Status: stable Mental Status/LOC: patient returned to baseline Post-Anesthesia Complications: none Follow-up care needed: N/A Tanisha Herrera CRNA Dec 12, 2018 19:38
--- NOTE | 2018-12-12 20:00 | NUR ---
NURSE NOTES: pt awake and alertx4 hr85 a-paced no c/o pain or sob
--- NOTE | 2018-12-12 20:44 | General Progress Note ---
Assessment/Plan Problem List: (1) Bradycardia ICD Codes: R00.1 - Bradycardia, unspecified SNOMED: 80889555 (2) Hyperglycemia due to type 2 diabetes mellitus ICD Codes: E11.65 - Type 2 diabetes mellitus with hyperglycemia SNOMED: 987257182638660, 50411573 Qualifiers: Qualified Codes: E11.65 - Type 2 diabetes mellitus with hyperglycemia (3) Hypertension ICD Codes: I10 - Essential (primary) hypertension SNOMED: 86011256, [id number] Qualifiers: Qualified Codes: I10 - Essential (primary) hypertension (4) Syncope ICD Codes: R55 - Syncope and collapse SNOMED: 058007602 Qualifiers: Qualified Codes: R55 - Syncope and collapse Status: progressing Assessment/Plan: s/p emergent pacemaker by dr diaz in icu niddm off b tiff Subjective ROS Limited/Unobtainable: Yes Allergies: Coded Allergies: PENICILLINS (Verified Allergy, Unknown, 12/10/18) Objective Last 24 Hour Vital Signs Date Time Temp Pulse Resp B/P (MAP) Pulse Ox O2 Delivery O2 Flow Rate FiO2 12/12/18 19:38 70 98 12/12/18 19:00 74 13 158/100 (119) 99 12/12/18 18:00 86 20 156/62 (93) 97 12/12/18 17:00 68 15 151/78 (102) 97 12/12/18 16:00 60 12/12/18 16:00 97.9 68 15 150/80 (103) 98 12/12/18 16:00 Nasal Cannula 2.0 12/12/18 15:00 60 16 133/72 (92) 97 12/12/18 14:00 62 18 142/75 (97) 98 12/12/18 13:00 61 20 157/85 (109) 98 12/12/18 12:00 Nasal Cannula 2.0 12/12/18 12:00 97.7 63 20 160/89 (112) 99 12/12/18 12:00 60 12/12/18 11:00 62 15 141/67 (91) 98 12/12/18 10:00 60 15 130/82 (98) 93 12/12/18 09:30 83 21 125/66 (85) 97 12/12/18 09:00 97 20 158/89 (112) 97 12/12/18 08:30 79 17 153/96 (115) 98 12/12/18 08:00 60 12/12/18 08:00 97.9 62 18 138/81 (100) 95 12/12/18 08:00 Nasal Cannula 2.0 12/12/18 07:30 60 15 142/81 (101) 98 12/12/18 07:25 61 13 148/85 (106) 98 12/12/18 07:15 70 19 173/80 (111) 97 12/12/18 07:10 60 18 148/77 (100) 95 12/12/18 07:10 60 18 148/77 (100) 95 12/12/18 07:05 60 19 146/85 (105) 95 12/12/18 07:05 60 19 146/85 (105) 95 12/12/18 07:00 60 17 153/84 (107) 95 12/12/18 07:00 60 17 153/84 (107) 95 12/12/18 06:55 66 20 99 12/12/18 06:55 66 20 154/81 (105) 99 12/12/18 06:50 60 16 138/79 (98) 99 12/12/18 06:45 60 15 153/89 (110) 98 12/12/18 06:40 61 17 147/89 (108) 98 12/12/18 06:35 62 13 155/83 (107) 96 12/12/18 06:34 60 18 99 12/12/18 06:30 60 13 144/78 (100) 98 12/12/18 04:00 83 12/12/18 04:00 98.4 62 14 128/78 (95) 98 12/12/18 04:00 98.4 12/12/18 03:00 62 14 128/78 (95) 98 12/12/18 02:00 69 14 140/81 (100) 98 12/12/18 01:00 72 12 142/80 (100) 98 12/12/18 00:35 67 17 98 Facial 35 12/12/18 00:35 67 17 98 Bi-Pap 35 12/12/18 00:00 98.4 72 19 142/77 (98) 99 12/12/18 00:00 84 12/11/18 23:00 72 19 142/77 (98) 99 12/11/18 22:00 76 18 156/80 (105) 98 12/11/18 21:00 81 16 146/69 (94) 98 Intake and Output 12/11/18 12/12/18 19:00 07:00 Intake Total 450 ml 240 ml Output Total 2150 ml 300 ml Balance -1700 ml -60 ml Intake Oral 450 ml 240 ml Output Urine Total 2150 ml 300 ml # Voids 1 Laboratory Tests 12/12/18 03:45: White Blood Count 9.3, Red Blood Count 4.82, Hemoglobin 14.3, Hematocrit 41.8L, Mean Corpuscular Volume 87, Mean Corpuscular Hemoglobin 29.6, Mean Corpuscular Hemoglobin Concent 34.2, Red Cell Distribution Width 11.4L, Platelet Count 206, Mean Platelet Volume 8.5, Neutrophils (%) (Auto) 72.3, Lymphocytes (%) (Auto) 17.8L, Monocytes (%) (Auto) 7.5, Eosinophils (%) (Auto) 1.6, Basophils (%) (Auto ) 0.8, Prothrombin Time 10.3, Prothromb Time International Ratio 1.0, Activated Partial Thromboplast Time 27, Sodium Level 140, Potassium Level 4.0, Chloride Level 106, Carbon Dioxide Level 26, Anion Gap 8, Blood Urea Nitrogen 17, Creatinine 0.9, Estimat Glomerular Filtration Rate > 60, Glucose Level 135H, Calcium Level 9.1, Total Bilirubin 0.3, Aspartate Amino Transf (AST/SGOT) 18, Alanine Aminotransferase (ALT/SGPT) 24, Alkaline Phosphatase 54, Total Protein 7.1, Albumin 4.0, Globulin 3.1, Albumin/Globulin Ratio 1.3 Height (Feet): 6 Height (Inches): 0.00 Weight (Pounds): 219 Respiratory/Chest: lungs clear Abdomen: soft Gena Meza MD Dec 12, 2018 20:44
--- NOTE | 2018-12-12 22:00 | NUR ---
NURSE NOTES: had ct chest and tolerated well hs care done and linin change
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
[2018-12-13] VITALS (23 sets, daily range): BP systolic 129–175; BP diastolic 70–119
--- NOTE | 2018-12-13 | NUR ---
NURSE NOTES: asleep on b-pap tolerating well
--- NOTE | 2018-12-13 | NUR ---
NURSE NOTES: on b-pap 04/01 rate 16 30 0/0fio pt tolerating well ct of chest - neg
--- NOTE | 2018-12-13 02:07 | NUR ---
NURSE NOTES: reposition and suction tolerating tube feeding Addendum: 12/13/18 at 2320 by AMAYA BOUCHER RN joão Young -f jose
--- NOTE | 2018-12-13 03:45 | NUR ---
Patient has an order to go on Bipap at [facility] with settings 15/8, he tried wearing the machine the night before but stated that it was too much pressure. I offered the machine again tonight with a different setting which is 10/5 br 16 fio2 .30 which he tolerated with adequate chest rise and pt. wore t/o the night. TOLU Montiel made aware and asked for an order change from Dr. Elliott. Will continue to monitor.
--- NOTE | 2018-12-13 04:00 | NUR ---
NURSE NOTES: complete bed bath and suction ice pack to surg woundl
[2018-12-13] MEDS: Vancomycin 1.25gm Premix 275 ML IVPB SCH ×2 (05:54→18:09)
--- NOTE | 2018-12-13 07:14 | NUR ---
HAND-OFF: Report given to derrek nuno using s-bar.
--- NOTE | 2018-12-13 07:15 | NUR ---
NURSE NOTES: Received patient from TOLU Dean. Patient sleeping at this time with no sign of acute distress. Patient on BiPAP 10/5 with 30% FiO2. Patient did not tolerate the setting ordered by Dr Elliott. Will speak with Dr Elliott when he rounds on the patient today and ask if the order can be changed. Patient has his own CPAP at the bedside. Will put in a work order for engineering to evaluate whether this device can be used by the patient while he is in the hospital. Patient is reported to be alert and oriented when awake. Patient is status post pacemaker insertion. Patient is sinus rhythm with atrial pacing on the panel monitor. Patient uses urinal. Urinal is at the bedside. Patient skin is intact apart from surgical site on left upper chest from pacemaker insertion. Patient reported to be complaining of some pain at the incision site and in his ribs. Patient concerned that he has fractured his ribs. CT of the chest is negative for any fracture of the ribs. Patient has an 18G PIV of the left hand which will be removed when patient wakes up. Patient has a right forearm 20G PIV that is patent, asymptomatic, and running Vanco at this time. Patient bed in low position with bed alarm on and call light in reach at this time.
--- NOTE | 2018-12-13 08:39 | Critical Care Progress Note ---
Assessment/Plan Assessment/Plan bradycardia hypertension s/p pacemaker respiratory insufficiency sleep apnea PLAN BIPAP as tolerated continue same CT chest cardiology follow up monitor for change medications/laboratory data/nursing notes/ICU care reviewed in detail note reviewed and edited care discussed with RN and RT ICU time spent 35 minutes Critical Care - Subjective Interval Events: care noted and reviewed cxr noted CT pending Condition: stable EKG Rhythm: Sinus Rhythm I&O: Intake and Output 12/12/18 12/13/18 18:59 06:59 Intake Total 1200 ml 820 ml Output Total 1225 ml 300 ml Balance -25 ml 520 ml Intake Oral 1180 ml 820 ml Other 20 ml Output Urine Total 1225 ml 300 ml Critical Care - Objective CXR: CXR negative Last 24 Hour Vital Signs Date Time Temp Pulse Resp B/P (MAP) Pulse Ox O2 Delivery O2 Flow Rate FiO2 12/13/18 07:00 60 14 139/85 (103) 99 12/13/18 06:49 60 16 99 Facial 30 12/13/18 06:00 63 15 143/79 (100) 99 12/13/18 05:00 60 15 143/79 (100) 98 12/13/18 04:57 60 16 98 Facial 30 12/13/18 04:00 60 12/13/18 04:00 Nasal Cannula 2.0 12/13/18 04:00 98.4 61 0 134/74 (94) 99 12/13/18 03:00 60 3 132/71 (91) 97 12/13/18 02:55 61 17 97 Facial 30 12/13/18 02:00 61 14 135/79 (97) 98 12/13/18 01:00 62 16 140/72 (94) 99 12/13/18 00:58 60 16 96 Facial 30 12/13/18 00:00 Nasal Cannula 2.0 12/13/18 00:00 60 12/13/18 00:00 98.4 68 17 134/70 (91) 99 12/12/18 23:01 64 17 97 Facial 30 12/12/18 23:00 63 16 144/67 (92) 98 12/12/18 22:05 71 17 153/80 (104) 97 12/12/18 22:00 64 4 172/76 (108) 97 12/12/18 20:00 98.6 75 24 130/89 (103) 98 12/12/18 20:00 60 12/12/18 20:00 Nasal Cannula 2.0 12/12/18 19:38 70 98 12/12/18 19:00 74 13 158/100 (119) 99 12/12/18 18:00 86 20 156/62 (93) 97 12/12/18 17:00 68 15 151/78 (102) 97 12/12/18 16:00 60 12/12/18 16:00 97.9 68 15 150/80 (103) 98 12/12/18 16:00 Nasal Cannula 2.0 12/12/18 15:00 60 16 133/72 (92) 97 12/12/18 14:00 62 18 142/75 (97) 98 12/12/18 13:00 61 20 157/85 (109) 98 12/12/18 12:00 Nasal Cannula 2.0 12/12/18 12:00 97.7 63 20 160/89 (112) 99 12/12/18 12:00 60 12/12/18 11:00 62 15 141/67 (91) 98 12/12/18 10:00 60 15 130/82 (98) 93 12/12/18 09:30 83 21 125/66 (85) 97 12/12/18 09:00 97 20 158/89 (112) 97 Objective: WDWN NAD clear breath sounds bilaterally without rhonchi or wheeze [id number] without MRG NABS nontender no HSM no CCE nonfocal reviewed and edited Laureano Elliott MD Dec 13, 2018 08:39
--- NOTE | 2018-12-13 09:00 | NUR ---
NURSE NOTES: Spoke with Dr Elliott regarding the patient's inability to tolerate BiPAP order setting. He consented to the change of BiPAP order to setting of 10/5 with 30% FiO2 QHS and PRN. I notified him that the CT of the chest was negative for fracture.
--- NOTE | 2018-12-13 09:16 | NUR ---
NURSE NOTES: Patient reports that he slept well and denies pain at this time. Notified patient regarding result of chest CT. Patient expressed understanding.
--- NOTE | 2018-12-13 09:32 | NUR ---
NURSE NOTES: Pacemaker pollution control technician has arrived to evaluate the pacemaker. Will follow up with him regarding the result.
--- NOTE | 2018-12-13 09:39 | NUR ---
NURSE NOTES: Dr. Mary has arrived to insert the peripherally inserted central catheter. Patient HR 87, SpO2 100%, PEEP 5. Patient showing no sign of acute distress. Addendum: 12/13/18 at 1308 by Katrin Floyd RN This note is not meant for this patient. Disregard.
--- NOTE | 2018-12-13 09:52 | NUR ---
NURSE NOTES: Patient reports a popping sensation on his right side. He reports that the pain lasts only for a few seconds before it goes away. Will notify Dr Meza when he comes to see the patient. Pace maker signals collection technician reported that the pacemaker is functioning correctly at this time. Results of the test placed in the chart. Will notify Dr Griffin when he rounds on the patient. Patient given the booklet for the pacemaker that was originally placed in the chart.
--- NOTE | 2018-12-13 10:30 | NUR ---
NURSE NOTES: Blood pressure 169/92. Patient given Hydralazine 25mg PO.
[2018-12-13] MEDS: HydrALAZINE 25mg tab ORAL PRN ×2 (10:31→15:21)
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
--- NOTE | 2018-12-13 12:12 | Nephrology Progress Note ---
Assessment/Plan Problem List: (1) Syncope (2) Hypertension (3) Bradycardia (4) Obese Assessment: likely NISREEN Assessment Syncope Obesity HTN DM microscopic hematuria Plan Had emergency pacemaker supervisor volunteer services of 12/12 Norvasc daily for BP K supplement as needed check labs Hydralazine PRN for cheryl BP Subjective ROS Limited/Unobtainable: No Constitutional: Reports: weakness Objective Objective Last 24 Hour Vital Signs Date Time Temp Pulse Resp B/P (MAP) Pulse Ox O2 Delivery O2 Flow Rate FiO2 12/13/18 10:31 169/92 12/13/18 07:00 60 14 139/85 (103) 99 12/13/18 06:49 60 16 99 Facial 30 12/13/18 06:00 63 15 143/79 (100) 99 12/13/18 05:00 60 15 143/79 (100) 98 12/13/18 04:57 60 16 98 Facial 30 12/13/18 04:00 60 12/13/18 04:00 Nasal Cannula 2.0 12/13/18 04:00 98.4 61 0 134/74 (94) 99 12/13/18 03:00 60 3 132/71 (91) 97 12/13/18 02:55 61 17 97 Facial 30 12/13/18 02:00 61 14 135/79 (97) 98 12/13/18 01:00 62 16 140/72 (94) 99 12/13/18 00:58 60 16 96 Facial 30 12/13/18 00:00 Nasal Cannula 2.0 12/13/18 00:00 60 12/13/18 00:00 98.4 68 17 134/70 (91) 99 12/12/18 23:01 64 17 97 Facial 30 12/12/18 23:00 63 16 144/67 (92) 98 12/12/18 22:05 71 17 153/80 (104) 97 12/12/18 22:00 64 4 172/76 (108) 97 12/12/18 20:00 98.6 75 24 130/89 (103) 98 12/12/18 20:00 60 12/12/18 20:00 Nasal Cannula 2.0 12/12/18 19:38 70 98 12/12/18 19:00 74 13 158/100 (119) 99 12/12/18 18:00 86 20 156/62 (93) 97 12/12/18 17:00 68 15 151/78 (102) 97 12/12/18 16:00 60 12/12/18 16:00 97.9 68 15 150/80 (103) 98 12/12/18 16:00 Nasal Cannula 2.0 12/12/18 15:00 60 16 133/72 (92) 97 12/12/18 14:00 62 18 142/75 (97) 98 12/12/18 13:00 61 20 157/85 (109) 98 Intake and Output 12/12/18 12/13/18 19:00 07:00 Intake Total 1780 ml 240 ml Output Total 1225 ml 900 ml Balance 555 ml -660 ml Intake Oral 1760 ml 240 ml Other 20 ml Output Urine Total 1225 ml 900 ml Height (Feet): 6 Height (Inches): 0.00 Weight (Pounds): 219 General Appearance: no apparent distress Cardiovascular: normal rate, pacemaker/AICD Respiratory/Chest: lungs clear Abdomen: soft Jermain Gutierrez MD Dec 13, 2018 12:12
--- NOTE | 2018-12-13 12:24 | NUR ---
NURSE NOTES: Patient blood pressure is 168/[address] Gutierrez ordered Norvasc 5mg daily for the patient. The patient mentioned that Dr Griffin said that some medications can affect the function of the pace maker. Left message for Dr Griffin to ask if it is okay to give the Norvasc.
--- NOTE | 2018-12-13 12:41 | NUR ---
NURSE NOTES: Dr Griffin reported that it is okay to give the Norvasc. Will administer the medication now.
--- NOTE | 2018-12-13 13:30 | NUR ---
NURSE NOTES: Patient blood pressure 170/95 at this time. Patient not able to have hydralazine again until 1430. Will continue to monitor and administer hydralazine when possible.
--- NOTE | 2018-12-13 14:29 | Neurology Progress Note ---
Interim History Interim History ROS Limited/Unobtainable: No Complaints: S/P Cardiac Arrest / Syncope Events: In ICU, s/p pacemaker Interim History This visit was performed on December 13, [address] Diego Ashley. Review of Systems All Systems: reviewed and negative except above Objective Physical Exam Last Vital Signs Date Time Temp Pulse Resp B/P (MAP) Pulse Ox O2 Delivery O2 Flow Rate FiO2 12/13/18 12:54 79 168/86 12/13/18 12:00 97.9 12 97 12/13/18 06:49 Facial 30 12/13/18 04:00 2.0 General: well developed, well nourished, no acute distress Head: normocophalic, atraumatic Neck: no rigidity EENT: benign Neurologic Exam Mental Status: awake, alert, oriented x4, normal cognition, good mathematical skills, normal recent memory, normal remote memory, preserved visuospatial function Speech: normal speech, no dysarthia Language: normal language, no aphasia Cranial Nerve II: fundus normal, visual coulter, no papilledema Cranial Nerves III, IV, : PERRLA, EOMI, pupils Cranial Nerve V: normal facial sensations, temporales function normal, masseters function normal, pterygoids function normal Cranial Nerve VII: no facial asymmetry, normal facial expressions Cranial Nerve VIII: normal hearing, no nystagmus Cranial Nerve IX: normal palate elevation, gag response Cranial Nerve X: no voice hoarseness Cranial Nerve XI: SCM symmetric, trapezii function normal Cranial Nerve XII: tongue midline, no tongue atrophy/fasciculations Motor System: normal muscle tone, strength 5/5, no involuntary movement, no muscle wasting Sensory: normal pinprick, normal light touch, normal position sense, normal graphesthesia Coordination: normal finger to nose bilaterally, normal heel to menon bilaterally, negative Romberg test Deep Tendon Reflexes: 2+ bicep (L), 2+ bicep (R), 2+ tricep (L), 2+ tricep (R) , 2+ brachioradialis (L), 2+ brachioradialis (R), 2+ knee (L), 2+ knee (R), 2+ ankle (L), 2+ ankle (R) Stance: normal Impression/Recommendations Problems: (1) Bradycardia (2) Hyperglycemia due to type 2 diabetes mellitus (3) Hypertension (4) Syncope (5) Obese (6) Acute encephalopathy Status: stable, tolerating diet Recommendations SBP< 140 Q4 Hr Neuro Obs Na 135-145 MRI Brain w/o contrast when stable to rule out any anoxic injury given somewhat nondiagnostic- Not okay s/p pacemaker? No order entered Maintain normothermia Maintain normoglycemia with ISS Crit Care BIPAP at night PT Evaluation/ Tx Start Atorvastatin 40mg Start ASA 81mg when ok with PMT Alda Bear N.P. Dec 13, 2018 14:29
--- NOTE | 2018-12-13 15:21 | NUR ---
NURSE NOTES: Patient blood pressure now 163/86. Hydralazine 25mg PRN given.
--- NOTE | 2018-12-13 17:00 | Cardiac Electrophysiology PN ---
Assessment/Plan Assessment/Plan 1. 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 Heart rate down to 20s as well as more than 60 second asystole due to complete heart block. S/P emergency dual chamber ST armand pacer implantion at 3.30 am. Interrogated today and showed Nl fx. 2. Accelerated hypertension. Norvasc 5 mg daily was resumed 3. The patient also was ruled out for myocardial infarction and thyroid function test within normal range. Echocardiogram showed ejection fraction of 50%. DW , [facility] Rep and RN Subjective Subjective Remained in V paced rhythm im CCU. Pacer interrogation showed Nl Fx Objective Last 24 Hour Vital Signs Date Time Temp Pulse Resp B/P (MAP) Pulse Ox O2 Delivery O2 Flow Rate FiO2 12/13/18 16:00 77 12/13/18 16:00 Nasal Cannula 2.0 12/13/18 15:21 163/86 12/13/18 13:00 77 18 170/95 (120) 97 12/13/18 12:54 79 168/86 12/13/18 12:00 76 12/13/18 12:00 Nasal Cannula 2.0 12/13/18 12:00 97.9 68 12 168/86 (113) 97 12/13/18 11:00 70 15 157/91 (113) 99 12/13/18 10:31 169/92 12/13/18 10:20 69 11 159/82 (107) 98 12/13/18 10:00 69 12 169/92 (117) 99 12/13/18 09:00 60 17 129/71 (90) 99 12/13/18 08:00 Nasal Cannula 2.0 12/13/18 08:00 98.1 60 16 149/73 (98) 100 12/13/18 08:00 60 12/13/18 07:00 60 14 139/85 (103) 99 12/13/18 06:49 60 16 99 Facial 30 12/13/18 06:00 63 15 143/79 (100) 99 12/13/18 05:00 60 15 143/79 (100) 98 12/13/18 04:57 60 16 98 Facial 30 12/13/18 04:00 60 12/13/18 04:00 Nasal Cannula 2.0 12/13/18 04:00 98.4 61 0 134/74 (94) 99 12/13/18 03:00 60 3 132/71 (91) 97 12/13/18 02:55 61 17 97 Facial 30 12/13/18 02:00 61 14 135/79 (97) 98 12/13/18 01:00 62 16 140/72 (94) 99 12/13/18 00:58 60 16 96 Facial 30 12/13/18 00:00 Nasal Cannula 2.0 12/13/18 00:00 60 12/13/18 00:00 98.4 68 17 134/70 (91) 99 12/12/18 23:01 64 17 97 Facial 30 12/12/18 23:00 63 16 144/67 (92) 98 12/12/18 22:05 71 17 153/80 (104) 97 12/12/18 22:00 64 4 172/76 (108) 97 12/12/18 20:00 98.6 75 24 130/89 (103) 98 12/12/18 20:00 60 12/12/18 20:00 Nasal Cannula 2.0 12/12/18 19:38 70 98 12/12/18 19:00 74 13 158/100 (119) 99 12/12/18 18:00 86 20 156/62 (93) 97 12/12/18 17:00 68 15 151/78 (102) 97 Intake and Output 12/12/18 12/13/18 19:00 07:00 Intake Total 1780 ml 423.333 ml Output Total 1225 ml 900 ml Balance 555 ml -476.667 ml Intake Oral 1760 ml 240 ml IV Total 183.333 ml Other 20 ml Output Urine Total 1225 ml 900 ml Objective HEAD AND NECK: No JVD or carotid bruits. LUNGS: Clear. CARDIOVASCULAR: Regular S1 and S2 with no gallop or murmur. Pcer in left subclavian no hematoma. ABDOMEN: Soft and nontender. EXTREMITIES: No pitting edema. Samuel Griffin MD Dec 13, 2018 17:00
--- NOTE | 2018-12-13 17:07 | NUR ---
NURSE NOTES: Spoke with Dr Griffin. He reported that patient is clear for discharge per cardiology. Will call Dr Meza regarding discharge order.
--- NOTE | 2018-12-13 17:46 | NUR ---
NURSE NOTES: Spoke with Dr Meza. He reported that he wants to monitor the patient for one more day prior to discharging him. He ordered for him to be transferred to telemetry. Order placed.
--- NOTE | 2018-12-13 19:24 | NUR ---
HAND-OFF: Report given to TOLU Gonsales and TOLU Correia. Patient blood pressure 158/88 at this time. Patient given Hydralazine twice during the day. Dr Griffin is aware. Patient denies acute distress or pain. Patient to be transferred to telemetry when bed available. Endorsed to follow up.
--- NOTE | 2018-12-13 19:25 | NUR ---
NURSE NOTES: Received report from TOLU Wilkes. Patient is alert and oriented x 4. No acute distress/SOB noted on RA. Patient denies any pain/discomfort at this time. SR with A-paced noted on monitor. Patient said right forearm IV site hurts when push meds. Will put another IV. Call light placed in easy reach. Will continue plan of care.
--- NOTE | 2018-12-13 20:30 | NUR ---
NURSE NOTES: Inserted new IV on right hand 22G.
[2018-12-13] MEDS ORDERED: Atorvastatin 20mg tab ORAL SCH (21:00)
--- NOTE | 2018-12-13 21:30 | General Progress Note ---
Assessment/Plan Problem List: (1) Bradycardia ICD Codes: R00.1 - Bradycardia, unspecified SNOMED: 06280038 (2) Hyperglycemia due to type 2 diabetes mellitus ICD Codes: E11.65 - Type 2 diabetes mellitus with hyperglycemia SNOMED: 345107372743447, 68208927 Qualifiers: Qualified Codes: E11.65 - Type 2 diabetes mellitus with hyperglycemia (3) Hypertension ICD Codes: I10 - Essential (primary) hypertension SNOMED: 49219054, [id number] Qualifiers: Qualified Codes: I10 - Essential (primary) hypertension (4) Syncope ICD Codes: R55 - Syncope and collapse SNOMED: 192218461 Qualifiers: Qualified Codes: R55 - Syncope and collapse Status: stable, tolerating diet Assessment/Plan: s/p emergent pacemaker by dr diaz monitor overnight and dc in am Subjective ROS Limited/Unobtainable: Yes Allergies: Coded Allergies: PENICILLINS (Verified Allergy, Unknown, 12/10/18) Objective Last 24 Hour Vital Signs Date Time Temp Pulse Resp B/P (MAP) Pulse Ox O2 Delivery O2 Flow Rate FiO2 12/13/18 21:00 70 20 157/82 (107) 98 12/13/18 20:00 Room Air 12/13/18 20:00 98.0 73 18 137/86 (103) 97 12/13/18 19:00 78 20 158/88 (111) 97 12/13/18 18:00 90 20 157/119 (132) 12/13/18 17:00 77 18 173/89 (117) 96 12/13/18 16:00 77 12/13/18 16:00 Nasal Cannula 2.0 12/13/18 16:00 98.9 73 20 175/92 (119) 97 12/13/18 15:21 163/86 12/13/18 15:06 78 19 163/86 (111) 97 12/13/18 14:00 75 20 166/87 (113) 97 12/13/18 13:00 77 18 170/95 (120) 97 12/13/18 12:54 79 168/86 12/13/18 12:00 76 12/13/18 12:00 Nasal Cannula 2.0 12/13/18 12:00 97.9 68 12 168/86 (113) 97 12/13/18 11:00 70 15 157/91 (113) 99 12/13/18 10:31 169/92 12/13/18 10:20 69 11 159/82 (107) 98 12/13/18 10:00 69 12 169/92 (117) 99 12/13/18 09:00 60 17 129/71 (90) 99 12/13/18 08:00 Nasal Cannula 2.0 12/13/18 08:00 98.1 60 16 149/73 (98) 100 12/13/18 08:00 60 12/13/18 07:00 60 14 139/85 (103) 99 12/13/18 06:49 60 16 99 Facial 30 12/13/18 06:00 63 15 143/79 (100) 99 12/13/18 05:00 60 15 143/79 (100) 98 12/13/18 04:57 60 16 98 Facial 30 12/13/18 04:00 60 12/13/18 04:00 Nasal Cannula 2.0 12/13/18 04:00 98.4 61 0 134/74 (94) 99 12/13/18 03:00 60 3 132/71 (91) 97 12/13/18 02:55 61 17 97 Facial 30 12/13/18 02:00 61 14 135/79 (97) 98 12/13/18 01:00 62 16 140/72 (94) 99 12/13/18 00:58 60 16 96 Facial 30 12/13/18 00:00 Nasal Cannula 2.0 12/13/18 00:00 60 12/13/18 00:00 98.4 68 17 134/70 (91) 99 12/12/18 23:01 64 17 97 Facial 30 12/12/18 23:00 63 16 144/67 (92) 98 12/12/18 22:05 71 17 153/80 (104) 97 12/12/18 22:00 64 4 172/76 (108) 97 Intake and Output 12/12/18 12/13/18 19:00 07:00 Intake Total 1780 ml 423.333 ml Output Total 1225 ml 900 ml Balance 555 ml -476.667 ml Intake Oral 1760 ml 240 ml IV Total 183.333 ml Other 20 ml Output Urine Total 1225 ml 900 ml Height (Feet): 6 Height (Inches): 0.00 Weight (Pounds): 219 Gena Meza MD Dec 13, 2018 21:30
--- NOTE | 2018-12-13 21:41 | NUR ---
TRANSFER TO FLOOR: Patient transferred to Step Down Unit. Report given to . Belongings and medications given to Patient. Family informed of patient transfer. Patient remains alert and oriented. Patient remains stable.
--- NOTE | 2018-12-13 21:45 | NUR ---
NURSE NOTES: Patient is transferred to [facility] and report given to TOLU Rocha. Inventory check done. Endorsed plan of care.
--- NOTE | 2018-12-13 21:50 | NUR ---
NURSE NOTES: Pt transferred from ICU. Given report from Vasile Mccurdy RN. Pt is awake and alert. Applied Tele monitor. IV site intact and no sing of infiltration noted. S/P pacemaker insertion. Surgical wound area intact and no sign of infection. Pt refused to apply BIPAP at this time. checked belongings with patient. Placed fall precaution. Will continue to care plan.
[2018-12-13] MEDS ORDERED: Morphine Sulfate 2mg/ml Inj(IV/IM USE ONLY) IVP PRN ×2 (22:00)
[2018-12-13] MEDS ORDERED: HydrALAZINE 25mg tab ORAL PRN ×2 (22:00)
[2018-12-13] MEDS ORDERED: Tylenol #3 tab (300mg/30mg) ORAL PRN ×2 (22:00)
--- NOTE | 2018-12-13 23:48 | Neurology Progress Note ---
Interim History Interim History ROS Limited/Unobtainable: Yes Complaints: S/P Cardiac Arrest / Syncope Events: Moved to 2W Step down unit Interim History This visit was performed on December 13, [address] Diego Ashley. Review of Systems All Systems: reviewed and negative except above Objective Physical Exam Last Vital Signs Date Time Temp Pulse Resp B/P (MAP) Pulse Ox O2 Delivery O2 Flow Rate FiO2 12/13/18 21:00 70 20 157/82 (107) 98 12/13/18 20:00 Room Air 12/13/18 20:00 98.0 12/13/18 16:00 2.0 12/13/18 06:49 30 General: well developed, well nourished, no acute distress Head: normocophalic, atraumatic Neck: no rigidity EENT: benign Neurologic Exam Mental Status: awake, alert, oriented x4, normal cognition, good mathematical skills, normal recent memory, normal remote memory, preserved visuospatial function Speech: normal speech, no dysarthia Language: normal language, no aphasia Cranial Nerve II: fundus normal, visual coulter, no papilledema Cranial Nerves III, IV, : PERRLA, EOMI, pupils Cranial Nerve V: normal facial sensations, temporales function normal, masseters function normal, pterygoids function normal Cranial Nerve VII: no facial asymmetry, normal facial expressions Cranial Nerve VIII: normal hearing, no nystagmus Cranial Nerve IX: normal palate elevation, gag response Cranial Nerve X: no voice hoarseness Cranial Nerve XI: SCM symmetric, trapezii function normal Cranial Nerve XII: tongue midline, no tongue atrophy/fasciculations Motor System: normal muscle tone, strength 5/5, no involuntary movement, no muscle wasting Sensory: normal pinprick, normal light touch, normal position sense, normal graphesthesia Coordination: normal finger to nose bilaterally, normal heel to menon bilaterally, negative Romberg test Deep Tendon Reflexes: 2+ bicep (L), 2+ bicep (R), 2+ tricep (L), 2+ tricep (R) , 2+ brachioradialis (L), 2+ brachioradialis (R), 2+ knee (L), 2+ knee (R), 2+ ankle (L), 2+ ankle (R) Stance: normal Impression/Recommendations Problems: (1) Bradycardia (2) Hyperglycemia due to type 2 diabetes mellitus (3) Hypertension (4) Syncope (5) Obese (6) Acute encephalopathy Status: doing well, stable, progressing, tolerating diet Recommendations SBP< 140 Q4 Hr Neuro Obs Na 135-145 MRI Brain w/o contrast when stable to rule out any anoxic injury given somewhat nondiagnostic- Not okay s/p pacemaker? No order entered Maintain normothermia Maintain normoglycemia with ISS BIPAP at night PT Evaluation/ Tx Start Atorvastatin 40mg Start ASA 81mg when ok with PMT Alda Bear N.P. Dec 13, 2018 23:48
[2018-12-14] VITALS: BP 150/100
[2018-12-14 04:00] VITALS: BP 155/96
[2018-12-14 05:49] LABS: EOSINOPHILS % (AUTO) 2.2 % (0.0-3.0); HEMOGLOBIN 13.5 G/DL (14.2-18.0); LYMPHOCYTES % (AUTO) 29.2 % (20.0-45.0); MEAN CORPUSCULAR VOLUME 86 FL (80-99); MONOCYTES % (AUTO) 8.6 % (1.0-10.0); PLATELET COUNT 163 K/UL (150-450); RED BLOOD COUNT 4.53 M/UL (4.70-6.10); RED CELL DISTRIBUTION WIDTH 11.4 % (11.6-14.8); WHITE BLOOD COUNT 8.3 K/UL (4.8-10.8)
[2018-12-14] MEDS ORDERED: Vancomycin 1.25gm Premix 275 ML IVPB SCH ×2 (06:00)
[2018-12-14 06:37] LABS: ALANINE AMINOTRANSFERASE 21 U/L (12-78); ALBUMIN 3.5 G/DL (3.4-5.0); ALBUMIN/GLOBULIN RATIO 1.1 (1.0-2.7); ALKALINE PHOSPHATASE 49 U/L (46-116); ANION GAP 10 mmol/L (5-15); ASPARTATE AMINO TRANSFERASE 14 U/L (15-37); BILIRUBIN,TOTAL 0.4 MG/DL (0.2-1.0); BLOOD UREA NITROGEN 20 mg/dL (7-18); CALCIUM 8.7 MG/DL (8.5-10.1); CARBON DIOXIDE 25 MMOL/L (21-32); CHLORIDE 104 MMOL/L (98-107); CREATININE 0.9 MG/DL (0.55-1.30); POTASSIUM 3.5 MMOL/L (3.5-5.1); SODIUM 139 MMOL/L (136-145)
[2018-12-14 07:10] LABS: PHOSPHORUS 4.2 MG/DL (2.5-4.9)
--- NOTE | 2018-12-14 07:20 | NUR ---
NURSE NOTES: receved patient report from saira nuno. patient is on bed asleep. not in acute distress, comfortable. no arrthmias reported during th enight. sp pacemaker placement on 12/12. bed is low and locked for safety. will follow plan of care.
--- NOTE | 2018-12-14 07:31 | NUR ---
HAND-OFF: Report given to TOLU Meyer. Pt is sleeping on the bed and no sign of acute distress noted.
[2018-12-14 08:00] VITALS: BP 164/98
[2018-12-14 09:00] VITALS: BP 153/87
--- NOTE | 2018-12-14 10:21 | Critical Care Progress Note ---
Assessment/Plan Assessment/Plan bradycardia hypertension s/p pacemaker respiratory insufficiency sleep apnea possible small sternal fracture PLAN BIPAP as tolerated continue same CT chest reviewed and discussed cardiology follow up monitor for change- outpatient monitoring patient informed medications/laboratory data/nursing notes reviewed in detail note reviewed and edited care discussed with RN and RT Critical Care - Subjective Interval Events: transferred to SDU Condition: improving EKG Rhythm: Sinus Rhythm I&O: Intake and Output 12/13/18 12/14/18 18:59 06:59 Intake Total 875.000 ml 466.666 ml Output Total 2300 ml 1400 ml Balance -1425.000 ml -933.334 ml Intake Oral 600 ml 100 ml IV Total 275.000 ml 366.666 ml Output Urine Total 2300 ml 1400 ml Critical Care - Objective CXR: CT chest ? small sternal fracture Last 24 Hour Vital Signs Date Time Temp Pulse Resp B/P (MAP) Pulse Ox O2 Delivery O2 Flow Rate FiO2 12/14/18 09:00 153/87 (109) 12/14/18 08:43 52 164/98 12/14/18 08:15 97 12/14/18 08:00 96.8 71 20 164/98 (120) 99 12/14/18 08:00 Bi-pap 12/14/18 07:31 64 12/14/18 06:57 60 18 100 Facial 30 12/14/18 05:30 60 18 99 Facial 30 12/14/18 04:00 98.6 66 20 155/96 (115) 97 12/14/18 04:00 65 12/14/18 04:00 Bi-pap 12/14/18 03:05 60 20 98 Facial 30 12/14/18 00:29 62 20 97 Facial 30 12/14/18 00:00 Room Air 12/14/18 00:00 98.7 82 20 150/100 (117) 97 12/14/18 00:00 74 12/13/18 21:00 70 20 157/82 (107) 98 12/13/18 20:00 Room Air 12/13/18 20:00 74 12/13/18 20:00 98.0 73 18 137/86 (103) 97 12/13/18 20:00 73 12/13/18 19:00 78 20 158/88 (111) 97 12/13/18 18:00 90 20 157/119 (132) 12/13/18 17:00 77 18 173/89 (117) 96 12/13/18 16:00 77 12/13/18 16:00 Nasal Cannula 2.0 12/13/18 16:00 98.9 73 20 175/92 (119) 97 12/13/18 15:21 163/86 12/13/18 15:06 78 19 163/86 (111) 97 12/13/18 14:00 75 20 166/87 (113) 97 12/13/18 13:00 77 18 170/95 (120) 97 12/13/18 12:54 79 168/86 12/13/18 12:00 76 12/13/18 12:00 Nasal Cannula 2.0 12/13/18 12:00 97.9 68 12 168/86 (113) 97 12/13/18 11:00 70 15 157/91 (113) 99 12/13/18 10:31 169/92 Labs: Labs Test 12/11/18 12:35 12/12/18 03:45 12/14/18 05:00 White Blood Count 8.7 K/UL (4.8-10.8) 9.3 K/UL (4.8-10.8) 8.3 K/UL (4.8-10.8) Red Blood Count 4.92 M/UL (4.70-6.10) 4.82 M/UL (4.70-6.10) 4.53 M/UL (4.70-6.10) Hemoglobin 14.4 G/DL (14.2-18.0) 14.3 G/DL (14.2-18.0) 13.5 G/DL (14.2-18.0) Hematocrit 42.1 % (42.0-52.0) 41.8 % (42.0-52.0) 39.0 % (42.0-52.0) Mean Corpuscular Volume 86 FL (80-99) 87 FL (80-99) 86 FL (80-99) Mean Corpuscular Hemoglobin 29.3 PG (27.0-31.0) 29.6 PG (27.0-31.0) 29.8 PG (27.0-31.0) Mean Corpuscular Hemoglobin Concent 34.2 G/DL (32.0-36.0) 34.2 G/DL (32.0-36.0) 34.6 G/DL (32.0-36.0) Red Cell Distribution Width 11.4 % (11.6-14.8) 11.4 % (11.6-14.8) 11.4 % (11.6-14.8) Platelet Count 194 K/UL (150-450) 206 K/UL (150-450) 163 K/UL (150-450) Mean Platelet Volume 7.7 FL (6.5-10.1) 8.5 FL (6.5-10.1) 8.8 FL (6.5-10.1) Neutrophils (%) (Auto) 74.2 % (45.0-75.0) 72.3 % (45.0-75.0) 59.0 % (45.0-75.0) Lymphocytes (%) (Auto) 16.8 % (20.0-45.0) 17.8 % (20.0-45.0) 29.2 % (20.0-45.0) Monocytes (%) (Auto) 7.2 % (1.0-10.0) 7.5 % (1.0-10.0) 8.6 % (1.0-10.0) Eosinophils (%) (Auto) 1.1 % (0.0-3.0) 1.6 % (0.0-3.0) 2.2 % (0.0-3.0) Basophils (%) (Auto) 0.7 % (0.0-2.0) 0.8 % (0.0-2.0) 1.0 % (0.0-2.0) Sodium Level 142 MMOL/L (136-145) 140 MMOL/L (136-145) 139 MMOL/L (136-145) Potassium Level 3.5 MMOL/L (3.5-5.1) 4.0 MMOL/L (3.5-5.1) 3.5 MMOL/L (3.5-5.1) Chloride Level 105 MMOL/L (98-107) 106 MMOL/L (98-107) 104 MMOL/L (98-107) Carbon Dioxide Level 25 MMOL/L (21-32) 26 MMOL/L (21-32) 25 MMOL/L (21-32) Anion Gap 12 mmol/L (5-15) 8 mmol/L (5-15) 10 mmol/L (5-15) Blood Urea Nitrogen 16 mg/dL (7-18) 17 mg/dL (7-18) 20 mg/dL (7-18) Creatinine 0.8 MG/DL (0.55-1.30) 0.9 MG/DL (0.55-1.30) 0.9 MG/DL (0.55-1.30) Estimat Glomerular Filtration Rate > 60 mL/min (>60) > 60 mL/min (>60) > 60 mL/min (>60) Glucose Level 159 MG/DL (74-106) 135 MG/DL (74-106) 106 MG/DL (74-106) Hemoglobin A1c 5.7 % (4.3-6.0) Uric Acid 5.0 MG/DL (2.6-7.2) Calcium Level 9.5 MG/DL (8.5-10.1) 9.1 MG/DL (8.5-10.1) 8.7 MG/DL (8.5-10.1) Phosphorus Level 3.1 MG/DL (2.5-4.9) 4.2 MG/DL (2.5-4.9) Magnesium Level 2.1 MG/DL (1.8-2.4) 1.8 MG/DL (1.8-2.4) Iron Level 95 ug/dL (50-175) Total Iron Binding Capacity 317 ug/dL (250-450) Percent Iron Saturation 30 % (15-50) Unsaturated Iron Binding 222 ug/dL (112-346) Ferritin 104 NG/ML (8-388) Total Bilirubin 0.5 MG/DL (0.2-1.0) 0.3 MG/DL (0.2-1.0) 0.4 MG/DL (0.2-1.0) Gamma Glutamyl Transpeptidase 23 U/L (5-85) Aspartate Amino Transf (AST/SGOT) 20 U/L (15-37) 18 U/L (15-37) 14 U/L (15-37) Alanine Aminotransferase (ALT/SGPT) 31 U/L (12-78) 24 U/L (12-78) 21 U/L (12-78) Alkaline Phosphatase 49 U/L (46-116) 54 U/L (46-116) 49 U/L (46-116) Total Creatine Kinase 171 U/L (26-308) Troponin I 0.008 ng/mL (0.000-0.056) C-Reactive Protein, Quantitative < 0.4 mg/dL (0.00-0.90) Pro-B-Type Natriuretic Peptide 139 pg/mL (0-125) 107 pg/mL (0-125) Total Protein 7.5 G/DL (6.4-8.2) 7.1 G/DL (6.4-8.2) 6.8 G/DL (6.4-8.2) Albumin 4.0 G/DL (3.4-5.0) 4.0 G/DL (3.4-5.0) 3.5 G/DL (3.4-5.0) Globulin 3.5 g/dL 3.1 g/dL 3.3 g/dL Albumin/Globulin Ratio 1.1 (1.0-2.7) 1.3 (1.0-2.7) 1.1 (1.0-2.7) Triglycerides Level 65 MG/DL (30-150) Cholesterol Level 167 MG/DL (< 200) LDL Cholesterol 105 mg/dL (<100) HDL Cholesterol 50 MG/DL (40-60) Cholesterol/HDL Ratio 3.3 (3.3-4.4) Vitamin B12 Level 930 PG/ML (193-986) Folate 19.6 NG/ML (8.6-58.9) Thyroid Stimulating Hormone (TSH) 1.368 uiU/mL (0.358-3.740) Free Thyroxine 1.16 NG/DL (0.76-1.46) Prothrombin Time 10.3 SEC (9.30-11.50) Prothromb Time International Ratio 1.0 (0.9-1.1) Activated Partial Thromboplast Time 27 SEC (23-33) Vancomycin Level Trough 9.9 ug/mL (5.0-12.0) Objective: WDWN NAD clear breath sounds bilaterally without rhonchi or wheeze [id number] without MRG NABS nontender no HSM no CCE nonfocal reviewed and edited Ishaaya,Laureano M MD Dec 14, 2018 10:21
--- NOTE | 2018-12-14 10:36 | Nephrology Progress Note ---
Assessment/Plan Problem List: (1) Syncope (2) Hypertension (3) Bradycardia (4) Obese Assessment: likely NISREEN Assessment Syncope Obesity HTN DM microscopic hematuria Plan Had emergency pacemaker drier belt conveyor of 12/12 Norvasc daily for BP- adjust dose K supplement as needed check labs Hydralazine PRN for cheryl BP DC planning? Subjective ROS Limited/Unobtainable: No Objective Objective Last 24 Hour Vital Signs Date Time Temp Pulse Resp B/P (MAP) Pulse Ox O2 Delivery O2 Flow Rate FiO2 12/14/18 09:00 153/87 (109) 12/14/18 08:43 52 164/98 12/14/18 08:15 97 12/14/18 08:00 96.8 71 20 164/98 (120) 99 12/14/18 08:00 Bi-pap 12/14/18 07:31 64 12/14/18 06:57 60 18 100 Facial 30 12/14/18 05:30 60 18 99 Facial 30 12/14/18 04:00 98.6 66 20 155/96 (115) 97 12/14/18 04:00 65 12/14/18 04:00 Bi-pap 12/14/18 03:05 60 20 98 Facial 30 12/14/18 00:29 62 20 97 Facial 30 12/14/18 00:00 Room Air 12/14/18 00:00 98.7 82 20 150/100 (117) 97 12/14/18 00:00 74 12/13/18 21:00 70 20 157/82 (107) 98 12/13/18 20:00 Room Air 12/13/18 20:00 74 12/13/18 20:00 98.0 73 18 137/86 (103) 97 12/13/18 20:00 73 12/13/18 19:00 78 20 158/88 (111) 97 12/13/18 18:00 90 20 157/119 (132) 12/13/18 17:00 77 18 173/89 (117) 96 12/13/18 16:00 77 12/13/18 16:00 Nasal Cannula 2.0 12/13/18 16:00 98.9 73 20 175/92 (119) 97 12/13/18 15:21 163/86 12/13/18 15:06 78 19 163/86 (111) 97 12/13/18 14:00 75 20 166/87 (113) 97 12/13/18 13:00 77 18 170/95 (120) 97 12/13/18 12:54 79 168/86 12/13/18 12:00 76 12/13/18 12:00 Nasal Cannula 2.0 12/13/18 12:00 97.9 68 12 168/86 (113) 97 12/13/18 11:00 70 15 157/91 (113) 99 Intake and Output 12/13/18 12/14/18 18:59 06:59 Intake Total 875.000 ml 466.666 ml Output Total 2300 ml 1400 ml Balance -1425.000 ml -933.334 ml Intake Oral 600 ml 100 ml IV Total 275.000 ml 366.666 ml Output Urine Total 2300 ml 1400 ml Laboratory Tests 12/14/18 05:00: White Blood Count 8.3, Red Blood Count 4.53L, Hemoglobin 13.5L, Hematocrit 39.0L , Mean Corpuscular Volume 86, Mean Corpuscular Hemoglobin 29.8, Mean Corpuscular Hemoglobin Concent 34.6, Red Cell Distribution Width 11.4L, Platelet Count 163, Mean Platelet Volume 8.8, Neutrophils (%) (Auto) 59.0, Lymphocytes (%) (Auto) 29.2, Monocytes (%) (Auto) 8.6, Eosinophils (%) (Auto) 2.2, Basophils (%) (Auto) 1.0, Sodium Level 139, Potassium Level 3.5, Chloride Level 104, Carbon Dioxide Level 25, Anion Gap 10, Blood Urea Nitrogen 20H, Creatinine 0.9, Estimat Glomerular Filtration Rate > 60, Glucose Level 106, Calcium Level 8.7, Phosphorus Level 4.2, Magnesium Level 1.8, Total Bilirubin 0.4, Aspartate Amino Transf (AST/SGOT) 14L, Alanine Aminotransferase (ALT/SGPT) 21, Alkaline Phosphatase 49, Pro-B-Type Natriuretic Peptide 107, Total Protein 6.8, Albumin 3.5, Globulin 3.3, Albumin/Globulin Ratio 1.1, Vancomycin Level Trough 9.9 Height (Feet): 6 Height (Inches): 0.00 Weight (Pounds): 219 General Appearance: no apparent distress Cardiovascular: pacemaker/AICD Respiratory/Chest: lungs clear Abdomen: soft Jermain Gutierrez MD Dec 14, 2018 10:36
[2018-12-14 11:12] VITALS: BP 153/87
[2018-12-14] MEDS ORDERED: Tubing IV Secondary IV ONE ×2 (11:39)
[2018-12-14] MEDS ORDERED: Atropine Sulfate 0.4mg/ml inj 20ML ONE (11:39)
[2018-12-14] MEDS ORDERED: Magnesium Sulfate 2ml Inj ONE (11:39)
[2018-12-14] MEDS ORDERED: NS 275ml ONE ×2 (11:39)
--- NOTE | 2018-12-14 11:42 | NUR ---
NURSE NOTES: patient left facility @ 1143. stable, not in acute distress. per dr diaz just continue norvasc 5mg Q daily, patient does not need any prescription/ belongings checked and signed by the , mary. cardiac moitor removed. iv line removed and bleeding was stopped. to see dr diaz within a week after discharge. patient understood teaching regarding meds and pacemaker placement.
--- NOTE | 2018-12-14 12:35 | NUR ---
CASE MANAGEMENT: REVIEW 12/12/2018 SI:SYNCOPE T 98.6 HR 75 RR 24 B/P 130/89 SATS 98% ON 2L/NC PLT 135 IS: LIPITOR PO QHS PROTONIX PO QD KDUR PO QD NORVASC PO QD VANCO IV Q12H SDU STATUS DCP: PATIENT TO BE DISCHARGED TO HOME ONCE MEDICALLY CLEARED. 12/13/2018 SI:SYNCOPE T 96.8 HR 71 RR 20 B/P 164/98 SATS 99% ON BIPAP BUN 20 AST 14 IS: LIPITOR PO QHS PROTONIX PO QD KDUR PO QD NORVASC PO QD VANCO IV Q12H SDU STATUS DCP: PATIENT TO BE DISCHARGED TO HOME ONCE MEDICALLY CLEARED. PATIENT DC 12/14/2018
--- NOTE | 2018-12-14 12:41 | NUR ---
[employer] FAXED TO FAX [phone]
--- NOTE | 2018-12-14 19:33 | Neurology Progress Note ---
Interim History Interim History ROS Limited/Unobtainable: No Complaints: S/P Cardiac Arrest / Syncope Events: Stable in step down unit, no changes Interim History Stable neurological exam. Review of Systems All Systems: reviewed and negative except above Objective Physical Exam Last Vital Signs Date Time Temp Pulse Resp B/P (MAP) Pulse Ox O2 Delivery O2 Flow Rate FiO2 12/14/18 11:12 52 153/87 12/14/18 08:15 97 12/14/18 08:00 96.8 20 12/14/18 08:00 Bi-pap 12/14/18 06:57 30 12/13/18 16:00 2.0 Laboratory Tests Test 12/14/18 05:00 White Blood Count 8.3 K/UL (4.8-10.8) Red Blood Count 4.53 M/UL (4.70-6.10) L Hemoglobin 13.5 G/DL (14.2-18.0) L Hematocrit 39.0 % (42.0-52.0) L Mean Corpuscular Volume 86 FL (80-99) Mean Corpuscular Hemoglobin 29.8 PG (27.0-31.0) Mean Corpuscular Hemoglobin Concent 34.6 G/DL (32.0-36.0) Red Cell Distribution Width 11.4 % (11.6-14.8) L Platelet Count 163 K/UL (150-450) Mean Platelet Volume 8.8 FL (6.5-10.1) Neutrophils (%) (Auto) 59.0 % (45.0-75.0) Lymphocytes (%) (Auto) 29.2 % (20.0-45.0) Monocytes (%) (Auto) 8.6 % (1.0-10.0) Eosinophils (%) (Auto) 2.2 % (0.0-3.0) Basophils (%) (Auto) 1.0 % (0.0-2.0) Sodium Level 139 MMOL/L (136-145) Potassium Level 3.5 MMOL/L (3.5-5.1) Chloride Level 104 MMOL/L (98-107) Carbon Dioxide Level 25 MMOL/L (21-32) Anion Gap 10 mmol/L (5-15) Blood Urea Nitrogen 20 mg/dL (7-18) H Creatinine 0.9 MG/DL (0.55-1.30) Estimat Glomerular Filtration Rate > 60 mL/min (>60) Glucose Level 106 MG/DL (74-106) Calcium Level 8.7 MG/DL (8.5-10.1) Phosphorus Level 4.2 MG/DL (2.5-4.9) Magnesium Level 1.8 MG/DL (1.8-2.4) Total Bilirubin 0.4 MG/DL (0.2-1.0) Aspartate Amino Transf (AST/SGOT) 14 U/L (15-37) L Alanine Aminotransferase (ALT/SGPT) 21 U/L (12-78) Alkaline Phosphatase 49 U/L (46-116) Pro-B-Type Natriuretic Peptide 107 pg/mL (0-125) Total Protein 6.8 G/DL (6.4-8.2) Albumin 3.5 G/DL (3.4-5.0) Globulin 3.3 g/dL Albumin/Globulin Ratio 1.1 (1.0-2.7) Vancomycin Level Trough 9.9 ug/mL (5.0-12.0) General: well developed, well nourished, no acute distress Head: normocophalic, atraumatic Neck: no rigidity EENT: benign Neurologic Exam Mental Status: awake, alert, oriented x4, normal cognition, good mathematical skills, normal recent memory, normal remote memory, preserved visuospatial function Speech: normal speech, no dysarthia Language: normal language, no aphasia Cranial Nerve II: fundus normal, visual coulter, no papilledema Cranial Nerves III, IV, : PERRLA, EOMI, pupils Cranial Nerve V: normal facial sensations, temporales function normal, masseters function normal, pterygoids function normal Cranial Nerve VII: no facial asymmetry, normal facial expressions Cranial Nerve VIII: normal hearing, no nystagmus Cranial Nerve IX: normal palate elevation, gag response Cranial Nerve X: no voice hoarseness Cranial Nerve XI: SCM symmetric, trapezii function normal Cranial Nerve XII: tongue midline, no tongue atrophy/fasciculations Motor System: normal muscle tone, strength 5/5, no involuntary movement, no muscle wasting Sensory: normal pinprick, normal light touch, normal position sense, normal graphesthesia Coordination: normal finger to nose bilaterally, normal heel to menon bilaterally, negative Romberg test Deep Tendon Reflexes: 2+ bicep (L), 2+ bicep (R), 2+ tricep (L), 2+ tricep (R) , 2+ brachioradialis (L), 2+ brachioradialis (R), 2+ knee (L), 2+ knee (R), 2+ ankle (L), 2+ ankle (R) Stance: normal Impression/Recommendations Problems: (1) Bradycardia (2) Hyperglycemia due to type 2 diabetes mellitus (3) Hypertension (4) Syncope (5) Obese (6) Acute encephalopathy Status: doing well, stable, progressing, tolerating diet Recommendations BIPAP at night PT Evaluation Stable for discharge from a neurological perspective. Alda Bear N.P. Dec 14, 2018 19:33
[2018-12-14] MEDS ORDERED: Atorvastatin 20mg tab ORAL SCH ×2 (21:00)
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
--- NOTE | 2018-12-16 09:44 | NUR ---
*-* INSURANCE *-* ALL CLINICALS HAVE BEEN RE-FAXED TO: [facility] REF# [id number] SHAYNEM:JASPER P: [phone] F: [phone]
--- NOTE | 2018-12-17 19:06 | Cardiology Report ---
APPROVED REPORT EKG Measurement Heart [id number] Sinus bradycardia with 1st degree AV block Left bundle branch block Abnormal ECG
== END 2018-12-14 11:40 | disposition home or self-care (01) | DRG 244 ==
LOC: EDBD 23:09 → EMR 23:48 → 2E 12-11 01:10 → EDBEDREQ 12-11 01:45 → ICU 12-11 13:00 → 2W 12-13 21:39
PROC: 0JH606Z Insertion of Pacemaker, Dual Chamber into Chest Subcutaneous Tissue and Fascia, Open Approach (ICD-10-PCS; principal; 2018-12-12 05:00)
PROC: 5A09357 Assistance with Respiratory Ventilation, Less than 24 Consecutive Hours, Continuous Positive Airway Pressure (ICD-10-PCS; principal; 2018-12-12 05:00)
PROC: 02HK3JZ Insertion of Pacemaker Lead into Right Ventricle, Percutaneous Approach (ICD-10-PCS; principal; 2018-12-12 05:00)
PROC: 5A12012 Performance of Cardiac Output, Single, Manual (ICD-10-PCS; principal; 2018-12-12 05:00)
PROC: 02H63JZ Insertion of Pacemaker Lead into Right Atrium, Percutaneous Approach (ICD-10-PCS; principal; 2018-12-12 05:00)
DX: I45.3 Trifascicular block (principal); S22.20XA Unspecified fracture of sternum, initial encounter for closed fracture; I44.2 Atrioventricular block, complete; I10 Essential (primary) hypertension; G47.33 Obstructive sleep apnea (adult) (pediatric); Z88.0 Allergy status to penicillin; Z87.891 Personal history of nicotine dependence; R31.29 Other microscopic hematuria; E66.9 Obesity, unspecified; X58.XXXA Exposure to other specified factors, initial encounter; E11.65 Type 2 diabetes mellitus with hyperglycemia; R00.1 Bradycardia, unspecified; Z96.652 Presence of left artificial knee joint
CPT/HCPCS: 36415; 70450; 71045; 71250; 80053; 80061; 80202; 80307; 80329; 81003; 82550; 82553; 82607; 82728; 82746; 82962; 82977; 83036; 83540; 83550; 83735; 83880; 84100; 84439; 84443; 84484; 84550; 85025; 85610; 85730; 86140; 92950; 93005; 93306; 94003; 94150; 94660; 94664; 99285; J0171; J2250; J2405; J8499